=== PATIENT | female | born 1940 | race Caucasian/White ===

== ENCOUNTER → 2017-09-20 08:49 | Outpatient (CLI) | payer MEDICARE, OTHER, SELFPAY ==
[2017-09-20 12:41] LABS: Absolute Lymphocyte Count 1.48 X10^3/ul (0.83-4.51); Absolute Neutrophil Count 1.4 X10^3/uL (2.0-7.7); Basophil# 0.05 X10^3/uL; Basophil% 1.4 % (0-1); Eosinophils% 2.8 % (0-5); Hematocrit 41.7 % (37-47); Hemoglobin 13.7 g/dl (12.0-15.0); Lymphocyte # 1.48 X10^3/ul (4.0); Lymphocyte % 41.9 % (19-41); Mean Corp Hgb Conc 32.9 g/gl (32-36); Mean Corpuscular Hgb 29.5 pg (27.0-32.0); Mean Corpuscular Volume 89.7 fL (81-99); Mean Platelet Vol. 10.4 fl (6.2-12.0); Monocyte# 0.55 X10^3/uL; Monocyte% 15.6 % (0-10); Neutrophil # 1.35 X10^3/uL (2.7-7.7); Neutrophil % 38.3 % (47-70); Platelet Count 225 K/mm3 (150-450); RBC Distribution Width CV 13.2 % (11.6-14.6); RBC Distribution Width SD 42.7 fl (35.1-43.9); Red Blood Count 4.65 M/mm3 (4.2-5.4); White Blood Count 3.5 K/mm3 (4.4-11.0)
[2017-09-20 12:47] LABS: POSITIVE COUNT NO; POSITIVE DIFFERENTIAL NO; POSITIVE MORPHOLOGY NO
[2017-09-20 12:55] LABS: Anion Gap 5 (5-15); BUN 17 mg/dL (7-18); BUN/Creat Ratio 18.5 RATIO (10-20); Chloride 111 mmol/L (98-107); Cholesterol 226 mg/dL (200); Creatinine, Serum 0.92 mg/dL (0.55-1.02); EST Glomerular Filtration Rate 63 mL/min (>60); Est Glom Filt Rate - Afr Amer 76 mL/min (>60); Glucose 104 mg/dL (74-106); High Density Lipoprotein 98 mg/dL; Potassium 4.4 mmol/L (3.5-5.1); Sodium Level 142 mmol/L (136-145); Triglycerides 75 mg/dL; Very Low Density Lipoprotein 15 mg/dL (5-40)
[2017-09-20 13:00] LABS: Vitamin B12 658 pg/mL (211-911); Vitamin D,25 Hydroxy 60.4 ng/mL (29.95-100.01)
== END ==
PROVIDERS: Family Provider Family Medicine; PCP Family Medicine; Visit Provider Family Medicine
DX: E55.9 Vitamin D deficiency, unspecified (principal); E53.8 Deficiency of other specified B group vitamins; R53.83 Other fatigue; Z13.220 Encounter for screening for lipoid disorders
CPT/HCPCS: 36415; 80048; 80061; 82306; 82607; 85025

== ENCOUNTER → 2019-01-29 10:42 | Outpatient (CLI) | payer MEDICARE, OTHER, SELFPAY ==
[2019-01-29 12:36] LABS: Absolute Lymphocyte Count 1.61 X10^3/uL (0.83-4.51); Absolute Neutrophil Count 1.9 X10^3/uL (2.0-7.7); Basophil# 0.05 X10^3/uL; Basophil% 1.2 % (0-1); Eosinophil# 0.04 X10^3/uL; Eosinophils% 0.9 % (0-5); Hematocrit 40.6 % (37-47); Hemoglobin 13.3 g/dL (12.0-15.0); Lymphocyte # 1.61 X10^3/ul (4.0); Lymphocyte % 37.7 % (19-41); Mean Corp Hgb Conc 32.8 g/dL (32-36); Mean Corpuscular Hgb 29.6 pg (27.0-32.0); Mean Corpuscular Volume 90.4 fL (81-99); Mean Platelet Vol. 10.6 fl (6.2-12.0); Monocyte# 0.63 X10^3/uL; Monocyte% 14.8 % (0-10); NRBC Flagged by Analyzer 0 % (0-5); Neutrophil # 1.94 X10^3/uL (2.7-7.7); Neutrophil % 45.4 % (47-70); Platelet Count 228 K/mm3 (150-450); RBC Distribution Width CV 12.7 % (11.6-14.6); RBC Distribution Width SD 42.1 fl (35.1-43.9); Red Blood Count 4.49 M/mm3 (4.2-5.4); White Blood Count 4.3 K/mm3 (4.4-11.0)
[2019-01-29 12:58] LABS: Vitamin B12 940 pg/mL (211-911); Vitamin D,25 Hydroxy 58.2 ng/mL (29.95-100.01)
== END ==
PROVIDERS: Family Provider Family Medicine; PCP Family Medicine; Visit Provider Family Medicine
DX: E55.9 Vitamin D deficiency, unspecified (principal); E53.8 Deficiency of other specified B group vitamins
CPT/HCPCS: 36415; 82306; 82607; 85025

== ENCOUNTER → 2020-06-01 11:40 | Outpatient (CLI) | payer MEDICARE, OTHER, SELFPAY ==
[2020-06-01 15:19] LABS: Absolute Lymphocyte Count 1.51 X10^3/uL (0.83-4.51); Absolute Neutrophil Count 2.7 X10^3/uL (2.0-7.7); Basophil# 0.07 X10^3/uL; Basophil% 1.4 % (0-1); Eosinophil# 0.07 X10^3/uL; Eosinophils% 1.4 % (0-5); Hematocrit 41.4 % (37-47); Lymphocyte # 1.51 X10^3/ul (4.0); Lymphocyte % 29.8 % (19-41); Mean Corp Hgb Conc 33.8 g/dL (32-36); Mean Corpuscular Volume 91.8 fL (81-99); Mean Platelet Vol. 10.9 fl (6.2-12.0); Monocyte% 13.8 % (0-10); NRBC Flagged by Analyzer 0 % (0-5); Neutrophil # 2.71 X10^3/uL (2.7-7.7); Neutrophil % 53.4 % (47-70); Platelet Count 240 K/mm3 (150-450); RBC Distribution Width CV 12.9 % (11.6-14.6); Red Blood Count 4.51 M/mm3 (4.2-5.4); White Blood Count 5.1 K/mm3 (4.4-11.0)
[2020-06-01 15:39] LABS: Vitamin B12 1148 pg/mL (211-911); Vitamin D,25 Hydroxy 62.1 ng/mL
[2020-06-01 15:47] LABS: ALB/GLOB Ratio 0.9 RATIO (0.9-2.4); AST(SGOT) 26 U/L (15-37); Alanine Aminotransfer ALT/SGPT 27 U/L (13-56); Albumin, Serum 3.4 g/dL (3.2-5.0); Alkaline Phosphatase 72 U/L (45-117); Anion Gap 8 (5-15); BUN 16 mg/dL (7-18); BUN/Creat Ratio 16.2 RATIO (10-20); Calcium,Total 9.4 mg/dL (8.5-10.1); Chloride 106 mmol/L (98-107); Cholesterol 237 mg/dL (200); Creatinine, Serum 0.99 mg/dL (0.55-1.02); EST Glomerular Filtration Rate 58 mL/min (>60); Est Glom Filt Rate - Afr Amer 70 mL/min (>60); Globulin 3.8 g/dL (2.2-4.2); Glucose 85 mg/dL (74-106); High Density Lipoprotein 110 mg/dL; Potassium 4.1 mmol/L (3.5-5.1); Protein, Total 7.2 g/dL (6.4-8.2); Sodium Level 140 mmol/L (136-145); T4 Free Direct 1.12 ng/dL (0.76-1.46); Thyroid Stim Hormone (TSH) 0.84 uIU/mL (0.358-3.74); Triglycerides 75 mg/dL; Very Low Density Lipoprotein 15 mg/dL (5-40)
[2020-06-01 16:08] LABS: Hemoglobin A1c 5.4 % (3.8-5.6)
== END ==
PROVIDERS: PCP Family Medicine; Visit Provider Family Medicine
DX: R73.01 Impaired fasting glucose (principal); E55.9 Vitamin D deficiency, unspecified; D72.9 Disorder of white blood cells, unspecified; E53.8 Deficiency of other specified B group vitamins; E78.5 Hyperlipidemia, unspecified; R53.83 Other fatigue
CPT/HCPCS: 36415; 80053; 80061; 82306; 82607; 83036; 84439; 84443; 85025

== ENCOUNTER 2021-10-15 10:11 | Emergency (ER) | payer MEDICARE, OTHER, SELFPAY ==
[2021-10-15 10:12] VITALS: BP 166/67; PULSE 70; RESP 18; TEMP 36.1; O2SAT 99; BMI 24.7
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
[2021-10-15 11:18] VITALS: PULSE 74; RESP 17; O2SAT 98
== END 2021-10-15 11:19 | disposition home or self-care (01) ==
PROVIDERS: Emergency Provider Emergency Medicine; PCP Family Medicine; Visit Provider Emergency Medicine
DX: S80.852A Superficial foreign body, left lower leg, initial encounter (principal); X58.XXXA Exposure to other specified factors, initial encounter
CPT/HCPCS: 73590; 99282

== ENCOUNTER → 2022-02-03 | Outpatient (CLI) | payer MEDICARE, OTHER, SELFPAY ==
[2022-02-03 12:16] LABS: Basophil# 0.06 X10^3/uL; Basophil% 1.2 % (0-1); Eosinophil# 0.09 X10^3/uL; Eosinophils% 1.9 % (0-5); Hematocrit 42.9 % (37-47); Lymphocyte % 41.4 % (19-41); Mean Corp Hgb Conc 32.6 g/dL (32-36); Mean Corpuscular Hgb 29.7 pg (27.0-32.0); Mean Corpuscular Volume 91.1 fL (81-99); Mean Platelet Vol. 10.7 fl (6.2-12.0); Monocyte% 14.5 % (0-10); NRBC Flagged by Analyzer 0 % (0-5); Neutrophil # 1.97 X10^3/uL (2.7-7.7); Neutrophil % 40.8 % (47-70); Platelet Count 239 K/mm3 (150-450); RBC Distribution Width CV 12.7 % (11.6-14.6); RBC Distribution Width SD 42.3 fl (35.1-43.9); Red Blood Count 4.71 M/mm3 (4.2-5.4); White Blood Count 4.8 K/mm3 (4.4-11.0)
[2022-02-03 12:40] LABS: Vitamin B12 945 pg/mL (211-911); Vitamin D,25 Hydroxy 50.6 ng/mL
[2022-02-03 13:34] LABS: Anion Gap 6 (5-15); BUN 17 mg/dL (7-18); BUN/Creat Ratio 17.7 RATIO (10-20); Calcium,Total 9.5 mg/dL (8.5-10.1); Chloride 110 mmol/L (98-107); Cholesterol 262 mg/dL (200); Creatinine, Serum 0.96 mg/dL (0.55-1.02); EST Glomerular Filtration Rate 59 mL/min (>60); Est Glom Filt Rate - Afr Amer 72 mL/min (>60); Glucose 96 mg/dL (74-106); High Density Lipoprotein 97 mg/dL; Potassium 4.6 mmol/L (3.5-5.1); Sodium Level 142 mmol/L (136-145); Triglycerides 122 mg/dL; Very Low Density Lipoprotein 24 mg/dL (5-40)
[2022-02-03 14:02] LABS: Hemoglobin A1c 5.5 % (3.8-5.6)
== END | disposition home or self-care (01) ==
LOC: BFHLAB 09:32
PROVIDERS: PCP Family Medicine; Visit Provider Family Medicine
DX: E53.8 Deficiency of other specified B group vitamins (principal); E55.9 Vitamin D deficiency, unspecified; R73.01 Impaired fasting glucose; E78.5 Hyperlipidemia, unspecified
CPT/HCPCS: 36415; 80048; 80061; 82306; 82607; 83036; 85025

== ENCOUNTER → 2022-06-07 | Outpatient (CLI) | payer MEDICARE, OTHER, SELFPAY | END | disposition home or self-care (01) | LOC: LABSPEC 13:52 | PROVIDERS: PCP Family Medicine; Visit Provider Family Medicine | DX: Z20.822 Contact with and (suspected) exposure to COVID-19 (principal) | CPT/HCPCS: 87635; U0003; U0005 ==

== ENCOUNTER → 2022-06-21 | Outpatient (CLI) | payer MEDICARE, OTHER, SELFPAY ==
--- NOTE | 2022-06-21 14:50 | RAD_ITS ---
INDICATION: COUGH EXAMINATION/TECHNIQUE: X-RAY - XR Chest 2 Views COMPARISON: 11/17/2014. FINDINGS: The lungs are clear. Tortuous and calcified thoracic aorta. The heart is not enlarged. No pleural effusion or pneumothorax. Degenerative changes of the thoracic spine and shoulders. RAD/Chest PA and Lateral IMPRESSION: No acute radiographic abnormalities. COPD. Electronically Signed: Sadi Collins MD at 18:17 EST ,
== END | disposition home or self-care (01) ==
LOC: RAD 14:38
PROVIDERS: PCP Family Medicine; Referring Provider Family Medicine; Visit Provider Family Medicine
DX: R05.9 Cough, unspecified (principal)
CPT/HCPCS: 71046

== ENCOUNTER 2022-11-25 11:25 | Emergency (ER) | payer MEDICARE, OTHER, SELFPAY ==
[2022-11-25] VITALS (10 sets, daily range): BP systolic 116–146; BP diastolic 63–130; PULSE 65–81; RESP 13–29; TEMP 36.6; O2SAT 93–98; BMI 25.4; BMI 25.6
--- NOTE | 2022-11-25 11:33 | ED.RN ---
SPOKE WITH DR. PRITCHARD REGARDING PT'S SX.
--- NOTE | 2022-11-25 11:55 | EX.ED.DYSGE1 ---
HPI <CARYN Miller - Last Filed: 11/25/22 18:07> History of Present Illness Chief Complaint: Neuro S/Sx Narrative Narrative: Patient presenting today due to weakness in her legs, headache, fatigue, and a rash to her left upper arm that she has had since Monday. She reports that she went to the chiropractor Monday morning and was adjusted, including neck adjustment and later that day began to feel weak in her legs and had a difficulty standing as well as a headache and fatigue. On she had mild generalized abdominal pain, 3 episodes of vomiting, and nausea. She reports that she still has mild epigastric pain. She continued to have difficulty ambulating and has been using a walker with assistance from her when she normally does not use a walker. reports that on Monday they noticed an erythemic jose that looked like a bug bite to the medial aspect of her left upper arm. Today, the area has worsened and has become more red and they are concerned that she could have been bit by a tick because they do spend a lot of time outside. She has been chilled and denies any chest pain, shortness of breath, and urinary symptoms. [facility] <CARYN Miller - Last Filed: 11/25/22 18:07> [facility] Medical History Long QT interval Home Medications prednisone 20 mg tablet 60 mg (3 x 20 mg) PO DAILY ##24 11/17/14 [Rx Last Taken Unknown] cephalexin 500 mg capsule 500 mg PO Q6 #20 CAPSULES 10/15/21 [Rx Last Taken Unknown] doxycycline hyclate 100 mg capsule 100 mg PO BID 21 days #42 caps 11/25/22 [Rx Last Taken Unknown] omeprazole 20 mg capsule,delayed release 20 mg PO DAILY 11/25/22 [History Last Taken Unknown] Allergy/AdvReac Type Severity Reaction Status Date / Time Iodinated Contrast Media Allergy Hives Verified 11/25/22 11:26 iodine Allergy Unknown Verified 11/25/22 11:26 Surgical History History of hip surgery History of tonsillectomy Social History Smoking Status: Never smoker substance use type: does not use ROS <CARYN Miller - Last Filed: 11/25/22 18:07> ROS ED Constitutional Constitutional ED: Reports chills; Denies fever(s) Eyes Eyes: Denies change in vision Cardiovascular Cardiovascular: Denies chest pain or palpitations Respiratory/Chest Respiratory/Chest: Denies cough or dyspnea Gastrointestinal Gastrointestinal: Reports abdominal pain, nausea and vomiting; Denies constipation or diarrhea Genitourinary Genitourinary ED: Denies dysuria, hematuria or urinary urgency Musculoskeletal Musculoskeletal: Denies arthralgias or myalgias Integumentary Reports rash; Denies abscess Neurologic Neurologic: Reports headache(s) and weakness; Denies confusion, dizziness or paresthesias EXAM <CARYN Miller - Last Filed: 11/25/22 18:07> Physical Exam Const Vital Signs: 11/25/22 11:27 11/25/22 11:39 11/25/22 11:41 Temperature 98 F Temperature Source Temporal Pulse Rate 79 80 Respiratory Rate 14 17 Respiratory Effort Normal Non-Labored Blood Pressure 132/78 H 128/81 H Blood Pressure Mean 96 96 Pulse Ox 94 98 Oxygen Delivery Method Room Air Room Air 11/25/22 11:42 11/25/22 12:27 11/25/22 13:08 Temperature Temperature Source Pulse Rate 81 76 80 Respiratory Rate 18 13 25 H Respiratory Effort Blood Pressure 128/81 H 146/130 H 138/76 H Blood Pressure Mean 96 135 96 Pulse Ox 94 96 95 Oxygen Delivery Method Room Air Room Air Room Air 11/25/22 13:51 11/25/22 14:30 11/25/22 14:47 Temperature Temperature Source Pulse Rate 72 70 66 Respiratory Rate 27 H 25 H 25 H Respiratory Effort Blood Pressure 125/68 H 121/69 H 116/65 Blood Pressure Mean 87 86 82 Pulse Ox 93 96 94 Oxygen Delivery Method Room Air Room Air Room Air 11/25/22 15:03 11/25/22 15:52 Temperature Temperature Source Pulse Rate 68 65 Respiratory Rate 29 H 20 H Respiratory Effort Blood Pressure 118/63 130/79 H Blood Pressure Mean 81 Pulse Ox 93 94 Oxygen Delivery Method Room Air Positive well nourished, well developed and no apparent distress General Appearance ED: well developed HEENT Reports normocephalic, head/scalp atraumatic and TM's clear Tympanic Membrane ED: Yes TM's clear bilateral Mouth ED: Yes moist mucous membranes normal Eyes PERRL and EOMs intact bilaterally Neck full ROM and supple Chest Wall inspection of chest normal Resp normal respiratory effort and clear to auscultation bilaterally Cardio regular rate and regular rhythm GI soft to palpation, non-tender, non-distended and no masses Back/Spine normal ROM and normal to inspection Extremity normal to inspection and full ROM Neuro oriented x3, CN's II-XII intact bilaterally, moves all extremities, no focal motor deficits and no sensory deficits noted Sensorium / Orientation: awake and alert Coordination / Balance: [id number] test normal and [id number] test normal Speech: speech normal Motor Exam: strength 5/5 throughout and muscle tone normal throughout Psych mental status grossly normal and thought process normal Skin no wounds Skin Narrative: Erythemic and warm area to the left upper arm, this does slightly look like a bull's-eye as there is an area in the center that is darker red, but also may look like cellulitis. <Dr. Sung Minaya, DO - Last Filed: 11/25/22 16:33> Physical Exam Const Vital Signs: 11/25/22 11:27 11/25/22 11:39 11/25/22 11:41 Temperature 98 F Temperature Source Temporal Pulse Rate 79 80 Respiratory Rate 14 17 Respiratory Effort Normal Non-Labored Blood Pressure 132/78 H 128/81 H Blood Pressure Mean 96 96 Pulse Ox 94 98 Oxygen Delivery Method Room Air Room Air 11/25/22 11:42 11/25/22 12:27 11/25/22 13:08 Temperature Temperature Source Pulse Rate 81 76 80 Respiratory Rate 18 13 25 H Respiratory Effort Blood Pressure 128/81 H 146/130 H 138/76 H Blood Pressure Mean 96 135 96 Pulse Ox 94 96 95 Oxygen Delivery Method Room Air Room Air Room Air 11/25/22 13:51 11/25/22 14:30 11/25/22 14:47 Temperature Temperature Source Pulse Rate 72 70 66 Respiratory Rate 27 H 25 H 25 H Respiratory Effort Blood Pressure 125/68 H 121/69 H 116/65 Blood Pressure Mean 87 86 82 Pulse Ox 93 96 94 Oxygen Delivery Method Room Air Room Air Room Air 11/25/22 15:03 11/25/22 15:52 Temperature Temperature Source Pulse Rate 68 65 Respiratory Rate 29 H 20 H Respiratory Effort Blood Pressure 118/63 130/79 H Blood Pressure Mean 81 Pulse Ox 93 94 Oxygen Delivery Method Room Air [facility] <CARYN Miller - Last Filed: 11/25/22 18:07> [facility] Narrative Medical decision making narrative: Patient presenting today due to concerns that she could have been bit by a tick as she has a rash that started as a small red bump on her left arm that has now spread and become larger that she first noticed on Monday. She reports that she spends a lot of time outdoors. She also reports that on Monday morning and she had a back and neck adjustment done by her chiropractor and by that evening she was having weakness in her legs and had a difficult time standing. She does not have any back or neck pain. She reports that she developed a headache and fatigue was on Monday that has not gotten any better. She developed a red jose to her left upper arm on Monday that has since spread and is concerned for Lyme disease. On examination patient does have intact sensation and strength in her legs. NIH is 0. This does not seem like Guillain-Hickman?. Patient does not have any paralysis on exam. There is no focal neurological deficit. She does have a erythemic rash to her left arm that could either be erythema migrans or cellulitis, she will be treated for cellulitis here. She has also been given IV fluids, Reglan, Benadryl, and Tylenol. Head CT obtained as well as a head and neck CTA to rule out carotid dissection from her recent adjustment as well as other intracranial abnormality and are negative for any acute findings. Labs obtained to rule out the doses anemia, electrolyte abnormality, UTI, and Lyme testing is also been obtained. Labs all are patient's unremarkable, UA does have bacteria and positive leukocytes, however she is not having any urinary symptoms. We will send this for culture. I did speak to the hospitalist about patient given her weakness, however, patient was ambulated and did well, she feels like her weakness has improved and feels like she can go home. She also reports that her headache has improved. Hospitalist agrees that patient can go home to be followed up outpatient. She will be discharged home in stable condition and is comfortable with plan. She will be treated for potential Lyme disease with doxycycline. She has been given return instructions. Lab Data Attestation: I reviewed the patient's lab results. Labs: Laboratory Results - last 24 hr 11/25/22 11/25/22 11/25/22 11:41 11:55 14:28 WBC 6.8 RBC 4.77 Hgb 14.2 Hct 42.9 MCV 89.9 MCH 29.8 MCHC 33.1 RDW Std Deviation 41.9 RDW Coeff of Meg 12.6 Plt Count 166 MPV 10.4 Immature Gran % (Auto) 0.600 Neut % (Auto) 80.7 H Lymph % (Auto) 9.1 L [place] % (Auto) 8.7 Eos % (Auto) 0.0 Baso % (Auto) 0.9 Absolute Neuts (auto) 5.5 Absolute Lymphs (auto) 0.62 L Nucleated RBC % 0 PT 14.2 INR 1.1 APTT 32.5 Sodium 132 L Potassium 4.1 Chloride 101 Carbon Dioxide 24.0 Anion Gap 7 BUN 10 Creatinine 0.95 Estim Creat Clear Calc 35.05 Est GFR (MDRD) Af Amer 73 Est GFR (MDRD) Non-Af 60 BUN/Creatinine Ratio 10.5 Glucose 114 H Calcium 8.8 Total Bilirubin 0.60 AST 47 H ALT 48 Alkaline Phosphatase 75 Troponin I High Sens 17 Total Protein 7.1 Albumin 3.1 L Globulin 4.0 Albumin/Globulin Ratio 0.8 L Urine Color Yellow Urine Clarity Sl. Cloudy Urine pH 6.0 Ur Specific [place] 1.015 Urine Protein 100 H Urine Glucose (UA) Normal Urine Ketones 50 H Urine Occult Blood 10 H Urine Nitrite Negative Urine Bilirubin Negative Urine Urobilinogen 1 H Ur Leukocyte Esterase 100 H Urine RBC 0-5 SEEN Urine WBC 10-25 SEEN Ur Squamous Epith Cells 0-5 SEEN Urine Bacteria 1+ Urine Mucus 1+ POC Glucose 130 H Radiography Diagnostic Testing: Clinical Impression(s) from Imaging Studies Head/Neck CTA 11/25/22 11:59 IMPRESSION: Minimal plaque calcification at the origin of the right internal carotid artery. Heterogeneous enlargement of both lobes of thyroid gland with substernal extension. N.B. : The above Results were Read Back by Tu Cao MD to Sung Minaya DO, and understanding confirmed on 11/25/2022 14:42:30 (ET). Electronically Signed: Tu Cao MD at 14:43 EDT , ADDENDUM: 11/25/22 1450 IMPRESSION: Minimal plaque calcification at the origin of the right internal carotid artery. Heterogeneous enlargement of both lobes of thyroid gland with substernal extension. N.B. : The above Results were Read Back by Tu Cao MD to Sung Minaya DO, and understanding confirmed on 11/25/2022 14:42:30 (ET). Electronically Signed: Tu Cao MD at 14:43 EDT , Brain CT 11/25/22 12:02 IMPRESSION: Chronic involutional changes of the brain. Electronically Signed: Tu Cao MD at 12:17 EDT , Chest X-Ray 11/25/22 12:44 IMPRESSION: No acute mouth is seen. Stable examination. Electronically Signed: Tu Cao MD at 13:14 EDT , EKG Initial EKG: Comments: 78 bpm, sinus rhythm with PACs, no ST elevation, reviewed and interpreted by attending ED physician <Dr. Sung Minaya DO - Last Filed: 11/25/22 16:33> [facility] Lab Data Labs: Laboratory Results - last 24 hr 11/25/22 11/25/22 11/25/22 11:41 11:55 14:28 WBC 6.8 RBC 4.77 Hgb 14.2 Hct 42.9 MCV 89.9 MCH 29.8 MCHC 33.1 RDW Std Deviation 41.9 RDW Coeff of Meg 12.6 Plt Count 166 MPV 10.4 Immature Gran % (Auto) 0.600 Neut % (Auto) 80.7 H Lymph % (Auto) 9.1 L [place] % (Auto) 8.7 Eos % (Auto) 0.0 Baso % (Auto) 0.9 Absolute Neuts (auto) 5.5 Absolute Lymphs (auto) 0.62 L Nucleated RBC % 0 PT 14.2 INR 1.1 APTT 32.5 Sodium 132 L Potassium 4.1 Chloride 101 Carbon Dioxide 24.0 Anion Gap 7 BUN 10 Creatinine 0.95 Estim Creat Clear Calc 35.05 Est GFR (MDRD) Af Amer 73 Est GFR (MDRD) Non-Af 60 BUN/Creatinine Ratio 10.5 Glucose 114 H Calcium 8.8 Total Bilirubin 0.60 AST 47 H ALT 48 Alkaline Phosphatase 75 Troponin I High Sens 17 Total Protein 7.1 Albumin 3.1 L Globulin 4.0 Albumin/Globulin Ratio 0.8 L Urine Color Yellow Urine Clarity Sl. Cloudy Urine pH 6.0 Ur Specific [place] 1.015 Urine Protein 100 H Urine Glucose (UA) Normal Urine Ketones 50 H Urine Occult Blood 10 H Urine Nitrite Negative Urine Bilirubin Negative Urine Urobilinogen 1 H Ur Leukocyte Esterase 100 H Urine RBC 0-5 SEEN Urine WBC 10-25 SEEN Ur Squamous Epith Cells 0-5 SEEN Urine Bacteria 1+ Urine Mucus 1+ POC Glucose 130 H Radiography Diagnostic Testing: Clinical Impression(s) from Imaging Studies Head/Neck CTA 11/25/22 11:59 IMPRESSION: Minimal plaque calcification at the origin of the right internal carotid artery. Heterogeneous enlargement of both lobes of thyroid gland with substernal extension. N.B. : The above Results were Read Back by Tu Cao MD to Sung Minaya DO, and understanding confirmed on 11/25/2022 14:42:30 (ET). Electronically Signed: Tu Cao MD at 14:43 EDT , ADDENDUM: 11/25/22 7850 IMPRESSION: Minimal plaque calcification at the origin of the right internal carotid artery. Heterogeneous enlargement of both lobes of thyroid gland with substernal extension. N.B. : The above Results were Read Back by Tu Cao MD to Sung Minaya DO, and understanding confirmed on 11/25/2022 14:42:30 (ET). Electronically Signed: Tu Cao MD at 14:43 EDT , Brain CT 11/25/22 12:02 IMPRESSION: Chronic involutional changes of the brain. Electronically Signed: Tu Cao MD at 12:17 EDT , Chest X-Ray 11/25/22 12:44 IMPRESSION: No acute mouth is seen. Stable examination. Electronically Signed: Tu Cao MD at 13:14 EDT , Treatment and Re-Evaluation :: ED attending note: I evaluated the patient in conjunction with the GHAZALA. I agree with his/her statements and above findings. I have personally performed a face to face assessment of the patient and have reviewed the GHAZALA Note. I performed a substantive portion of the visit including all aspects of the following. I personally saw the patient performed chart review, physical exam, reviewed labs, imaging (if obtained), and formulated a treatment and management plan. Brief history: 82-year-old female here with diffuse weakness. Patient denies any saddle anesthesia, urinary retension, bowel or bladder incontinence, lower extremity weakness, fever or IV drug use, no recent spinal manipulation or surgery, no recent urinary catheterization. Exam: Nursing triage notes reviewed, Vital signs reviewed Constitutional: please see mdm HENT: MMM Eyes: Pupils equal round and reactive to light, Extraocular muscles intact Neck: No stridor, no JVD, full neck ROM Lungs: Clear to auscultation, No wheezing or rales. No increased work of breathing, no conversational dyspnea, no accessory muscle use, no nasal flaring. No respiratory distress noted Heart: Regular rate and rhythm, No murmurs, No rubs and No gallops, 2+ distal pulses (radial, femoral, posterior tibial) in all extremities Abdomen: Soft, there is no tenderness, rigidity, rebound or guarding, no obvious peritoneal signs, no palpable pulsatile abdominal masses, no auscultated abdominal bruit : No CVAT Extremities: No edema Neuro: Alert and oriented x3, neuro exam at baseline, cranial nerves II through XII are intact. No pain with extraocular muscle movement. There is negative test of skew. Normal speech. 5 of 5 strength in upper and lower extremities in flexion extension. Intact sensation to light touch in upper and lower extremity dermatomes. No truncal or extremity ataxia. No dysdiadochokinesia. Normal gait. 2+ reflexes. No meningeal signs. Negative Babinski. NIH of 0. Intact sensation L1-S1 dermatomal distributions. Intact 5/5 strength in hip flexion (T12-L3). Knee extension (L2-L4). Ankle dorsiflexion (L4-L5). Ankle plantar flexion (S1). Great toe extension (L5). 2+ patellar and Achilles DTRs. Skin: N erythema noted to the medial surface of the left upper arm MDM/plan: Chief Complaint: Weakness History obtained from others: Patient's MDM narrative: Patient was hemodynamically stable, afebrile, nontoxic-appearing. There are no focal neurologic deficits. I considered the following differential diagnosis: ICH, carotid dissection, anemia, electrolyte abnormality, infectious etiology, metabolic We will obtain a broad lab and imaging work-up including a Noncon CT scan of the brain as well as a CT of the head and neck. We will also obtain labs including troponin, Lyme titer to further elucidate any infectious or myocardial etiology. Given the patient's advanced age and reported she was not ambulatory at home. Given lack of ambulation we will offer admission. The patient presented diffuse weakness, leg weakness. There was no history of recent fall or trauma. There was no evidence to support genitourinary etiology. There is also no evidence to suggest vascular pathology such as AAA dissection. No fevers or other evidence to suspect infectious processes, abscess, osteomyelitis etc. The patient?s neurological exam is normal with normal motor and sensory. There is no saddle paresthesias reported and no bowel or bladder incontinence or retention. Clinical suspicion, plan of care and management was discussed with the patient. I completed a structured, evidence-based clinical evaluation to screen for acute non-traumatic spinal emergencies. The patient has a normal detailed neurologic exam and red flag historical factors were negative. The evidence indicates that the patient is very low risk for an acute spinal emergency and this is consistent with my clinical intuition. The risk of further workup is higher than the likelihood of the patient having a spinal epidural abscess or other dangerous emergency spinal condition. It is, therefore, in the patient?s best interest not to do additional emergent testing at this time. We will give empiric doxycycline with concern for tick bite and targetoid appearing lesion in the left upper extremity. Shared decision making: I will have a discussion with the patient and or visitors regarding risk/benefits of further testing or admission. They will be made aware of of the risk/benefits inherent in this decision they will be given the opportunity to voice understanding. Consults: Internal medicine Discharge Plan Triage Chief Complaint: Neuro S/Sx ED Midlevel Provider: Brittney Carl ED Provider: Sung Minaya Dx/Rx/DC Orders Clinical Impression: General weakness, Rash, Headache Instructions: ED Lyme Disease, ED Weakness (Uncertain Cause) Prescriptions: New doxycycline hyclate 100 mg capsule 100 mg PO BID 21 Days Qty: 42 0RF No Action prednisone 20 MG tablet 60 mg PO DAILY Qty: 24 0RF Rx Instructions: 3 tabs po day 1-4, then 2 tabs po day 5-8, then 1 tab day 9-12 cephalexin [cephalexin] 500 mg capsule 500 mg PO Q6 Qty: 20 0RF omeprazole 20 mg capsule,delayed release(DR/EC) 20 mg PO DAILY Patient Comments: TAKE 1 CAPSULE BY MOUTH EVERY DAY 30-45 minutes before a meal/snack Primary Care Provider: Re Harley Referrals: Re Harley MD [Primary Care Provider] - 3-5 Days Activity Restrictions/Additional Instructions: Please follow-up with your PCP. If the Lyme titer comes back negative discontinue the doxycycline after 10 days. Disposition Disposition: Home, Self Care Discharge Date/Time: 11/25/22 16:12
[2022-11-25 11:59] LABS: Bedside Glucose 130 mg/dL (74-106)
--- NOTE | 2022-11-25 11:59 | CT_ITS ---
STUDY: CTA HEAD AND NECK WITH CONTRAST REASON FOR EXAM: Female, 82 years old. Neck pain, recent adjustment RADIATION DOSAGE (If Supplied By Facility): CTDIvol = ( 16.09 ) mGy, DLP = ( 535.46 ) mGycm TECHNIQUE: CT angiography was performed with a multi-detector CT scanner. Data acquisition was obtained from the skull base through the vertex following intravenous administration of IV 100mL [id number]-370. MIP images were reconstructed from the axial data set. Post-processing of the angiographic images was performed, with multiplanar reformation and 3D reconstruction. Individualized dose optimization techniques were used for this CT. COMPARISON: No relevant priors. FINDINGS: Normal bilateral petrous carotid arteries. Normal right cavernous carotid artery with a normal supraclinoid bifurcation. Normal left cavernous carotid artery with a normal supraclinoid bifurcation. Normal right A1 segments of the anterior cerebral artery. Normal left A1 segments of the anterior cerebral artery. Normal intact anterior communicating artery (ACOM). Normal bilateral A2 segments of the anterior cerebral arteries. Normal right M1 and M2 segments of the middle cerebral arteries, with a normal M1 bifurcation. Normal left M1 and M2 segments of the middle cerebral arteries, with a normal M1 bifurcation. There is a persistent origin of the right posterior cerebral artery with absence of the posterior communicating artery (PCOM). Normal left posterior communicating artery (PCOM). Normal bilateral vertebral arteries. Normal basilar artery with a normal basilar bifurcation. The visualized bilateral superior cerebellar (SCA) arteries are normal. Normal bilateral P1, P2 and visualized P3 segments of the posterior cerebral arteries. There is no demonstrated aneurysm of the [place] of [place]. Heterogeneous enlargement of both lobes of the thyroid gland with evidence of substernal extension. AORTIC ARCH: There is atherosclerotic calcific plaque formation of the aortic arch and great vessels arising from the aortic arch, without a hemodynamically significant stenosis. There is a normal origin of the brachiocephalic, left common carotid, and left subclavian arteries. RIGHT CAROTID ARTERIES: Normal right common carotid artery (CCA). Normal right common carotid bulb. There is mild atherosclerotic plaque formation of the origin of the right internal carotid artery with less than 50% cross sectional diameter stenosis. Normal visualized cervical portion of the right internal carotid artery. Normal origin of the right external carotid artery (ECA). LEFT CAROTID ARTERIES: Normal left common carotid artery (CCA). Normal left common carotid bulb. Normal origin of the left internal carotid (ICA) artery without a hemodynamically significant stenosis. Normal visualized cervical portion of the left internal carotid artery. Normal origin of the left external carotid artery (ECA). VERTEBRAL ARTERIES: Normal bilateral vertebral arteries. CT/STROKE CTA Head AND Neck W/Con IMPRESSION: Minimal plaque calcification at the origin of the right internal carotid artery. Heterogeneous enlargement of both lobes of thyroid gland with substernal extension. N.B. : The above Results were Read Back by Tu Cao MD to Sung Minaya DO, and understanding confirmed on 11/25/2022 14:42:30 (ET). Electronically Signed: Tu Cao MD at 14:43 EDT ,
--- NOTE | 2022-11-25 12:02 | CT_ITS ---
STUDY: CT BRAIN WITHOUT CONTRAST REASON FOR EXAM: Female, 82 years old. Headaches, leg weakness RADIATION DOSAGE (If Supplied By Facility): CTDIvol = ( 44.99 ) mGy, DLP = ( 762.36 ) mGycm TECHNIQUE: Transaxial CT imaging of the brain was performed without administration of intravenous contrast material. Individualized dose optimization techniques were used for this CT. COMPARISON: No relevant priors. FINDINGS: Normal soft tissue structures. Normal calvarium. There is mild cerebral atrophy with widening of the extra-axial spaces and ventricular dilatation. There are areas of decreased attenuation within the white matter tracts of the supratentorial brain, consistent with microvascular disease changes. Normal basal ganglia and thalami. Normal brainstem. Normal cerebellum. There is no intracranial hemorrhage. There are no findings of an acute ischemic infarction. Atherosclerotic calcification of the cavernous portions of the internal carotid arteries bilaterally. Normal visualized paranasal sinuses. CT/Brain/Head without Contrast IMPRESSION: Chronic involutional changes of the brain. Electronically Signed: Tu Cao MD at 12:17 EDT ,
[2022-11-25 12:08] LABS: Absolute Lymphocyte Count 0.62 X10^3/uL (0.83-4.51); Absolute Neutrophil Count 5.5 X10^3/uL (2.0-7.7); Basophil# 0.06 X10^3/uL; Basophil% 0.9 % (0-1); Hematocrit 42.9 % (37-47); Hemoglobin 14.2 g/dL (12.0-15.0); Lymphocyte # 0.62 X10^3/ul (0.83-4.51); Lymphocyte % 9.1 % (19-41); Mean Corp Hgb Conc 33.1 g/dL (32-36); Mean Corpuscular Hgb 29.8 pg (27.0-32.0); Mean Corpuscular Volume 89.9 fL (81-99); Mean Platelet Vol. 10.4 fl (6.2-12.0); Monocyte# 0.59 X10^3/uL; Monocyte% 8.7 % (0-10); NRBC Flagged by Analyzer 0 % (0-5); Neutrophil # 5.47 X10^3/uL (2.7-7.7); Neutrophil % 80.7 % (47-70); Platelet Count 166 K/mm3 (150-450); RBC Distribution Width CV 12.6 % (11.6-14.6); RBC Distribution Width SD 41.9 fl (35.1-43.9); Red Blood Count 4.77 M/mm3 (4.2-5.4); White Blood Count 6.8 K/mm3 (4.4-11.0)
[2022-11-25 12:24] LABS: ALB/GLOB Ratio 0.8 RATIO (0.9-2.4); AST(SGOT) 47 U/L (15-37); Alanine Aminotransfer ALT/SGPT 48 U/L (13-56); Albumin, Serum 3.1 g/dL (3.2-5.0); Alkaline Phosphatase 75 U/L (45-117); Anion Gap 7 (5-15); BUN 10 mg/dL (7-18); BUN/Creat Ratio 10.5 RATIO (10-20); Calcium,Total 8.8 mg/dL (8.5-10.1); Chloride 101 mmol/L (98-107); Creatinine, Serum 0.95 mg/dL (0.55-1.02); EST Glomerular Filtration Rate 60 mL/min (>60); Est Glom Filt Rate - Afr Amer 73 mL/min (>60); Estimated Creatinine Clearance 35.05 ml/min; Glucose 114 mg/dL (74-106); Potassium 4.1 mmol/L (3.5-5.1); Protein, Total 7.1 g/dL (6.4-8.2); Sodium Level 132 mmol/L (136-145)
--- NOTE | 2022-11-25 12:25 | EKG12_ITS ---
Test Reason : weakness Blood Pressure : / mmHG Vent. Rate : 078 BPM Atrial Rate : 078 BPM P-R Int : 166 ms QRS Dur : 074 ms QT Int : 396 ms P-R-T Axes : 066 -10 049 degrees QTc Int : 451 ms Sinus rhythm with Premature atrial complexes Nonspecific T wave abnormality Abnormal ECG Confirmed by GLORIA SHARMA, NEEMA ([id number]), proposal editor EBONY NICOLE ([id number]) on 11/26/2022 10:05:32 AM Referred By: Confirmed By:NEEMA CASTRO MD
[2022-11-25] MEDS: Acetaminophen 325 MG Tablet 650 MG PO (12:36)
[2022-11-25] MEDS: Doxycycline 100 MG CAPSULE PO (12:36)
[2022-11-25] MEDS: 0.9% Normal Saline 1,000 ML 999 ML IV (12:36)
[2022-11-25] MEDS: Metoclopramide 10 MG/2 ML Vial 5 MG IV (12:36)
--- NOTE | 2022-11-25 12:44 | RAD_ITS ---
STUDY: X-RAY CHEST REASON FOR EXAM: Female, 82 years old. Weakness. Headaches and unable to walk for 2 days. TECHNIQUE: Single AP portable view of the chest. COMPARISON: Comparison is made with prior study June 21, 2022. FINDINGS: EKG electrodes are seen. Hyperinflation. There is no demonstrated pleural abnormality. Normal size heart. Normal mediastinum and ravi. Normal visualized pulmonary arteries. There is atherosclerotic calcification of the aortic arch with tortuosity. There is a mild dextroscoliosis of the thoracic spine. Normal visualized ribs, clavicles, and shoulders. There is no demonstrated abnormality of the visualized soft tissue structures of the upper abdomen. RAD/Chest 1 View (Portable) IMPRESSION: No acute mouth is seen. Stable examination. Electronically Signed: Tu Cao MD at 13:14 EDT ,
[2022-11-25] MEDS: DiphenhydrAMINE 50 MG/ML Syringe IV (12:59)
--- NOTE | 2022-11-25 13:08 | ED.RN ---
THIS RN CALLED [facility] TO LET THEM KNOW PT WAS MEDICATED WITH BENADRYL AND SOLUMEDROL AT 1259.
[2022-11-25 13:12] LABS: International Normalized Ratio 1.1; Prothrombin Time (Protime)PT. 14.2 SECONDS (11.7-14.9)
[2022-11-25 13:13] LABS: Partial Thromboplast Time 32.5 Seconds (24.1-36.2)
[2022-11-25 13:16] LABS: Troponin-I HS 17 pg/mL (3.0-54.0)
--- NOTE | 2022-11-25 13:46 | CM.ED ---
Social Work SW introduced self and role to pt and spouse. Pt reports having HCPOA/Living will paperwork at home. SW asked patient to bring documents in when able. Gail New INSPECTOR PROCESS, MAINTENANCE CARPENTER
[2022-11-25 14:39] LABS: Color, Urine Yellow (Yellow); Glucose, Dipstick Normal (Normal); Ketone-Dipstick 50 mg/dl (Negative); Leukocyte Esterase-Dipstick 100 /ul (Negative); Nitrite-Dipstick Negative (Negative); Occult Blood-Urine 10 /ul (Negative); Protein-Dipstick 100 mg/dl (Negative); Specific Gravity, Urine 1.015 (1.002-1.030); Urine Bilirubin Dipstick Negative (Negative); Urine Clarity Sl. Cloudy (Clear); Urine Urobilinogen 1 mg/dl (Normal)
[2022-11-25 14:48] LABS: Bacteria 1+ /hpf (None Seen); Mucous, Urine 1+ /hpf (<or=2+); Red Blood Cells-Urine 0-5 SEEN /hpf (0-5); Squamous Epithelial Cells - UA 0-5 SEEN /hpf (5-10); White Blood Cells 10-25 SEEN /hpf (0-5)
[2022-11-30 01:06] LABS: Lyme IgG P18 Ab Absent (.); Lyme IgG P23 Ab Absent (.); Lyme IgG P28 Ab Absent (.); Lyme IgG P30 Ab Absent (.); Lyme IgG P39 Ab Absent (.); Lyme IgG P41 Ab Absent (.); Lyme IgG P45 Ab Absent (.); Lyme IgG P58 Ab Absent (.); Lyme IgG P66 Ab Absent (.); Lyme IgG P93 Ab Absent (.); Lyme IgG WB Interpretation Negative (.); Lyme IgM P23 Ab Absent (.); Lyme IgM P39 Ab Absent (.); Lyme IgM P41 Ab Absent (.); Lyme IgM WB Interpretation Negative (.)
== END 2022-11-25 16:12 | disposition home or self-care (01) ==
PROVIDERS: Physician Assistant; Emergency Provider Emergency Medicine; PCP Family Medicine; Visit Provider Emergency Medicine
DX: R53.1 Weakness (principal); R21 Rash and other nonspecific skin eruption; R51.9 Headache, unspecified
CPT/HCPCS: 70450; 70496; 70498; 71045; 80053; 81001; 82962; 84484; 85025; 85610; 85730; 86617; 93005; 96361; 96374; 96375; 99285; J7030; Q9967; A4216

== ENCOUNTER → 2023-03-20 | Outpatient (CLI) | payer MEDICARE, OTHER, SELFPAY ==
--- NOTE | 2023-03-20 10:24 | BI_ITS ---
MAMMOGRAPHY - BILATERAL SCREENING REASON FOR EXAM: Female, 82 years old. Routine annual screening examination. PERTINENT HISTORY: Sister with breast cancer. History of remote right breast biopsy. TECHNIQUE: Digital bilateral breast misha (3D mammographic acquisition) in the CC and MLO projections. 2-D mediolateral oblique (MLO) and craniocaudad (CC) views of both breasts were obtained. CAD: Full Field Digital Mammography with Computer Added Detection was performed. COMPARISON: Comparison is made with prior outside mammogram dated January 07, 2021. FINDINGS: Breast Composition: There are scattered areas of fibroglandular density. There are no dominant masses or suspicious calcifications. No other significant abnormalities are identified. There has been no significant change since the prior study. BI/SCRN MAMM (CAD)W/MISHA BILAT IMPRESSION: Stable bilateral screening mammogram. Yearly follow-up mammogram recommended. (A) ASSESSMENT CATEGORY: BIRADS Category 1: Negative. A letter regarding these results will be sent to the patient by the facility within 30 days. Approximately 10% of breast cancers are not detected by mammography. A normal mammogram should not delay biopsy of a clinically suspicious abnormality. [id number] Electronically Signed: Tu Cao MD at 9:23 EST ,
== END | disposition home or self-care (01) ==
LOC: OPBI 10:23
PROVIDERS: PCP Family Medicine; Referring Provider Nurse Practitioner Family; Visit Provider Nurse Practitioner Family
DX: Z12.31 Encounter for screening mammogram for malignant neoplasm of breast (principal)
CPT/HCPCS: 77063; 77067

== ENCOUNTER → 2023-03-21 | Outpatient (CLI) | payer MEDICARE, OTHER, SELFPAY ==
[2023-03-21 12:23] LABS: Absolute Lymphocyte Count 2.19 X10^3/uL (0.83-4.51); Basophil# 0.09 X10^3/uL; Basophil% 1.7 % (0-1); Eosinophil# 0.26 X10^3/uL; Eosinophils% 4.9 % (0-5); Hematocrit 42.7 % (37-47); Lymphocyte # 2.19 X10^3/ul (0.83-4.51); Lymphocyte % 41.6 % (19-41); Mean Corp Hgb Conc 32.8 g/dL (32-36); Mean Corpuscular Volume 91.4 fL (81-99); Mean Platelet Vol. 10.7 fl (6.2-12.0); Monocyte# 0.76 X10^3/uL; Monocyte% 14.4 % (0-10); NRBC Flagged by Analyzer 0 % (0-5); Neutrophil # 1.96 X10^3/uL (2.7-7.7); Neutrophil % 37.2 % (47-70); Platelet Count 248 K/mm3 (150-450); RBC Distribution Width CV 12.9 % (11.6-14.6); Red Blood Count 4.67 M/mm3 (4.2-5.4); White Blood Count 5.3 K/mm3 (4.4-11.0)
[2023-03-21 12:45] LABS: Vitamin B12 840 pg/mL (211-911); Vitamin D,25 Hydroxy 79.4 ng/mL
[2023-03-21 12:49] LABS: ALB/GLOB Ratio 0.9 RATIO (0.9-2.4); AST(SGOT) 24 U/L (15-37); Alanine Aminotransfer ALT/SGPT 29 U/L (13-56); Albumin, Serum 3.6 g/dL (3.2-5.0); Alkaline Phosphatase 73 U/L (45-117); Anion Gap 4 (5-15); BUN 22 mg/dL (7-18); BUN/Creat Ratio 21.2 RATIO (10-20); Calcium,Total 9.5 mg/dL (8.5-10.1); Chloride 108 mmol/L (98-107); Cholesterol 276 mg/dL (200); Creatinine, Serum 1.04 mg/dL (0.55-1.02); EST Glomerular Filtration Rate 54 mL/min (>60); Est Glom Filt Rate - Afr Amer 65 mL/min (>60); Globulin 3.8 g/dL (2.2-4.2); Glucose 97 mg/dL (74-106); High Density Lipoprotein 101 mg/dL; Potassium 4.6 mmol/L (3.5-5.1); Protein, Total 7.4 g/dL (6.4-8.2); Sodium Level 141 mmol/L (136-145); Triglycerides 97 mg/dL; Very Low Density Lipoprotein 19 mg/dL (5-40)
== END | disposition home or self-care (01) ==
PROVIDERS: PCP Nurse Practitioner Family; Visit Provider Nurse Practitioner Family
DX: E55.9 Vitamin D deficiency, unspecified (principal); E53.8 Deficiency of other specified B group vitamins; D72.9 Disorder of white blood cells, unspecified; E78.5 Hyperlipidemia, unspecified
CPT/HCPCS: 36415; 80053; 80061; 82306; 82607; 85025

== ENCOUNTER → 2023-05-02 | Outpatient (CLI) | payer MEDICARE, OTHER, SELFPAY ==
--- NOTE | 2023-05-02 15:35 | RAD_ITS ---
EXAM: XR LUMBOSACRAL SPINE, 4 OR 5 VIEWS CLINICAL INDICATION: BACK PAIN TECHNIQUE: Frontal, lateral and bilateral oblique views of the lumbar spine. COMPARISON: No relevant prior studies available. FINDINGS: VERTEBRAE: There is mild curvature of the lumbar spine. Preserved vertebral body height. No fracture. No spondylolisthesis. No significant facet arthropathy. DISC SPACES: There are degenerative changes with disc space narrowing from L3 through S1. GASTROINTESTINAL TRACT: Unremarkable as visualized. Included bowel gas pattern is non-obstructive. RAD/L/S Spine Min 4 Views IMPRESSION: Degenerative changes with disc space narrowing. There is mild curvature of the lumbar spine. There is no acute osseous abnormality. Electronically Signed: Haroon Weston MD at 0:01 EST ,
--- NOTE | 2023-05-02 15:35 | RAD_ITS ---
EXAM: XR BILATERAL HIPS WITH PELVIS WHEN PERFORMED, 2 VIEWS CLINICAL INDICATION: PAIN TECHNIQUE: Frontal view of the bilateral hips with pelvis when performed. COMPARISON: No relevant prior studies available. FINDINGS: BONES/JOINTS: Unremarkable. No displaced fracture. No destructive or sclerotic lesions. Note that overlapping bowel shadows may however obscure fine detail. Sacroiliac joint is unremarkable. No widening of the pubic symphysis. The articular structures are unremarkable. SOFT TISSUES: Unremarkable. No soft tissue swelling or gas. RAD/Hips B/L min 2 views w/ Pelvis IMPRESSION: No evidence of displaced pelvic or hip fracture. Electronically Signed: Haroon Weston MD at 23:26 EST ,
== END | disposition home or self-care (01) ==
PROVIDERS: PCP Family Medicine; Referring Provider Nurse Practitioner Family; Visit Provider Nurse Practitioner Family
DX: M25.551 Pain in right hip (principal); M25.552 Pain in left hip; M54.50 Low back pain, unspecified
CPT/HCPCS: 72110; 73521

== ENCOUNTER 2023-05-31 11:37 | Emergency (ER) | payer MEDICARE, OTHER, SELFPAY ==
[2023-05-31 11:38] VITALS: BP 112/92; PULSE 56; RESP 14; TEMP 36.3; O2SAT 98; BMI 26.5
--- NOTE | 2023-05-31 14:09 | VDLE_ITS ---
Reason For Study: Bilateral leg pain RIGHT LEFT GSV is normal. GSV is normal. CFV is compressible, spontaneous, phasic, CFV is compressible, spontaneous, phasic, competent and demonstrates normal competent, and demonstrates normal augmentation. augmentation. FV is compressible, spontaneous, phasic, FV is compressible, spontaneous, phasic, competent and demonstrates normal competent and demonstrates normal augmentation. augmentation. POP V is compressible, spontaneous, phasic, POP V is compressible, spontaneous, phasic, competent and demonstrates normal competent and demonstrates normal augmentation. augmentation. T/P Trunk is compressible. T/P Trunk is compressible. PTV is compressible. PTV is compressible. RT PerV is compressible. LT PerV is compressible. Procedure Thrombus filled varicose veins noted in the This is a venous duplex using B-mode, color left proximal calf. flow and spectral Doppler. Exam performed portable in ED. A preliminary report was called and/or faxed to ED RN. VL/Venous Duplex US - Dc Extrem Interpretation Summary Acute superficial vein thrombosis noted in left calf varicosities. Deep veins of the bilateral lower extremities are patent and compressible segme ntally. There is no evidence of bilateral lower extremity deep vein thrombosis. The bilateral great saphenous veins appear patent and compressible segmentally. Ordering Physician: Rashid Lopez Referring Physician: Re Harley Performed By: Rosibel Estrada RVT
--- NOTE | 2023-05-31 14:10 | EDS_ITS ---
HPI History of Present Illness Chief Complaint: Lower Extremity Injury Detail of Chief Complaint: Swelling to both legs concern for DVT Informant: patient Narrative Narrative: Patient presents to the emergency department with swelling to the left medial calf as well as the right calf that she noticed yesterday. She is worried it may be a DVT as she had history of DVT about 50 years ago related to her . Patient denies any chest pain or shortness of breath. She denies recent travel or surgery. [facility] Medical History Long QT interval Home Medications prednisone 20 mg tablet 60 mg (3 x 20 mg) PO DAILY ##24 11/17/14 [Rx Last Taken Unknown] cephalexin 500 mg capsule 500 mg PO Q6 #20 CAPSULES 10/15/21 [Rx Last Taken Unknown] doxycycline hyclate 100 mg capsule 100 mg PO BID 21 days #42 caps 11/25/22 [Rx Last Taken Unknown] omeprazole 20 mg capsule,delayed release 20 mg PO DAILY 11/25/22 [History Last Taken Unknown] Allergy/AdvReac Type Severity Reaction Status Date / Time Iodinated Contrast Media Allergy Hives Verified 05/31/23 11:38 iodine Allergy Unknown Verified 05/31/23 11:38 Surgical History History of hip surgery History of tonsillectomy Social History Smoking Status: Never smoker substance use type: does not use ROS ROS ED Review of Systems ROS Unobtainable: other Constitutional Constitutional ED: Reports lethargy; Denies chills, fever(s), sweats or weight loss Eyes Eyes: Denies blurry vision, change in vision or diplopia ENT ENT ED: Denies rhinorrhea or sore throat Cardiovascular Cardiovascular: Denies chest pain, orthopnea or racing heartbeat Respiratory/Chest Respiratory/Chest: Denies cough, dyspnea, dyspnea on exertion, orthopnea or sputum Gastrointestinal Gastrointestinal: Denies abdominal pain, diarrhea, nausea or vomiting Genitourinary Genitourinary ED: Denies dysuria, hematuria or urinary frequency Musculoskeletal Musculoskeletal: Reports other Details: Pain and swelling to bilateral lower extremities ; Denies arthralgias, back pain, myalgias or neck pain Integumentary Denies abscess, Abrasions or rash Neurologic Neurologic: Denies headache(s) or weakness Psychiatric Psychiatric: Denies anxiety, depression or suicidal thoughts Endocrine Endocrinology: Denies polydipsia, polyphagia or polyuria Hematologic/Lymphatic Hematologic/Lymphatic: Denies easy bleeding, easy bruising or lymphadenopathy Allergic/Immunologic Allergic/Immunologic ED: Denies mouth swelling, tongue swelling or urticaria EXAM Physical Exam Const Vital Signs: 05/31/23 11:38 Temperature 97.3 F L Temperature Source Temporal Pulse Rate 56 L Respiratory Rate 14 Blood Pressure 112/92 H Blood Pressure Mean 98 Pulse Ox 98 Oxygen Delivery Method Room Air Positive well nourished and well developed General Appearance ED: well developed and NAD HEENT Reports TM's clear and moist mucous membranes normocephalic and atraumatic; Negative for trauma or tenderness Tympanic Membrane ED: Yes TM's clear Eyes PERRL and EOMs intact bilaterally General Eye ED: Negative for pale conjunctiva or scleral icterus Neck no lymphadenopathy, supple and no JVD General: Negative for tenderness Chest Wall inspection of chest normal and palpation of chest normal Chest: Negative for tenderness Resp normal respiratory effort and clear to auscultation bilaterally Effort and Inspection: Negative for respiratory distress or pain with movement Auscultation: Negative for rhonchi, wheezes or diminished lung sounds Cardio regular rate, regular rhythm, S1 normal heart sound, S2 normal heart sound and no murmurs Peripheral Pulses: pulses 2+ throughout GI normal to inspection, nondistended, normoactive bowel sounds, soft to palpation, non-tender, non-distended and no masses Back/Spine no CVA tenderness and no thoracic nor lumbar tenderness Extremity Extremity Narrative: Left leg-over the area of the medial proximal calf there is area of firmness and induration suspicious for venous varicosity. Slightly tender to palpation. No significant edema of the extremity noted. Neurovascular intact distally. Patient also has some tenderness over the medial portion of the right calf. No ropes or cords palpated here. General Extremety ED: Negative for edema General Extremity: Negative for edema Neuro oriented x3, CN's II-XII intact bilaterally, no sensory deficits noted and gait normal Sensorium / Orientation: awake, alert, oriented to person, oriented to place and oriented to time Motor Exam: strength 5/5 throughout and strength abnormal Psych mental status grossly normal Skin no rashes or lesions noted and no wounds MDM MDM MDM Narrative Medical decision making narrative: Patient presents with pain and swelling to both lower extremities. Patient concerned about DVT. In the differential would be superficial thrombophlebitis versus DVT. Will obtain venous Dopplers of both lower extremities to evaluate further. Patient had a venous Doppler of both lower extremities which was negative for DVT. Patient did have thrombus filled varicose vein in the left proximal calf. At this point patient will be treated as superficial thrombophlebitis/varicosity. Recommended warm compresses and anti-inflammatory medicine. Will refer to Dr. Whipple vascular surgery for follow-up. Patient advised to return if increasing pain and swelling, chest pain, shortness of breath, or if condition should worsen anyway. Discharge Plan Triage Chief Complaint: Lower Extremity Injury ED Provider: Rashid Lopez Dx/Rx/DC Orders Clinical Impression: Superficial thrombophlebitis Instructions: ED Thrombophlebitis, Superficial Prescriptions: No Action prednisone 20 MG tablet 60 mg PO DAILY Qty: 24 0RF Rx Instructions: 3 tabs po day 1-4, then 2 tabs po day 5-8, then 1 tab day 9-12 cephalexin [cephalexin] 500 mg capsule 500 mg PO Q6 Qty: 20 0RF omeprazole 20 mg capsule,delayed release(DR/EC) 20 mg PO DAILY Patient Comments: TAKE 1 CAPSULE BY MOUTH EVERY DAY 30-45 minutes before a meal/snack doxycycline hyclate 100 mg capsule 100 mg PO BID 21 Days Qty: 42 0RF Primary Care Provider: Re Harley Referrals: Malik Whipple MD [Med Staff - Active Staff] - 5-7 Days Re Harley MD [Primary Care Provider] - Disposition Disposition: Home, Self Care Discharge Date/Time: 05/31/23 15:23
== END 2023-05-31 15:23 | disposition home or self-care (01) ==
PROVIDERS: Emergency Provider Emergency Medicine; PCP Family Medicine; Visit Provider Emergency Medicine
DX: I80.02 Phlebitis and thrombophlebitis of superficial vessels of left lower extremity (principal)
CPT/HCPCS: 93970; 99282

== ENCOUNTER → 2023-06-20 | Outpatient (CLI) | payer MEDICARE, OTHER, SELFPAY ==
--- OUTSIDE RECORDS SUMMARY | 2023-06-20 11:27 | XMS RPT_ITS | CCD ---
Author Name Unknown Address [address] [place] [address] Organization [facility] Care Team Providers Care Pattern Marking Supervisor Name Role Phone Edmar SHARMA, Amol Bautista Primary Care Provider KATLIN PITTS Attending Unavailable AMOL HYATT Primary Care Unavailable KAROL MAZA Referring Unavailable KATLIN PITTS Attending Unavailable AMOL HYATT Primary Care Unavailable KAROL MAZA Referring Unavailable KATLIN PITTS Attending Unavailable AMOL HYATT Primary Care Unavailable KAROL MAZA Referring Unavailable KAROL MAZA Referring Unavailable KATLIN PITTS Attending Unavailable AMOL HYATT Primary Care Unavailable KAROL MAZA Referring Unavailable KATLIN PITTS Attending Unavailable AMOL HYATT Primary Care Unavailable AMOL HYATT Primary Care Unavailable KATLIN PITTS Attending Unavailable KAROL MAZA Referring Unavailable AMOL HYATT Primary Care Unavailable KAROL MAZA Attending Unavailable AMOL HYATT Primary Care Unavailable AMOL HYATT Primary Care Unavailable AMOL HYATT Referring Unavailable KAROL MAZA Attending Unavailable AMOL HYATT Primary Care Unavailable KAROL MAZA Referring Unavailable Allergies Allergy Classification Reported Allergen(s) Allergy Type Date of Onset Reaction(s) Facility (9 sources) Iodine; Translations: [IODINE] Drug Allergy 6 Itching, Other: See Comments [facility] (8 sources) Enviromental [Other] Propensity to adverse reactions 2 [facility] (1 source) OTHER; Translations: [OTHER] Propensity to adverse reactions (disorder) 2 [facility] Medications Completed/Discontinued Medications Medication Drug Class(es) Dates Sig (Normalized) Sig (Original) acetaminophen 325 mg oral tablet (8 sources) take 2 tablets by mouth every six hours as needed acetaminophen (TYLENOL) 325 mg tablet Take 650 mg by mouth every 6 hours as needed. 0 Active Problems Active Problems Problem Classification Problem Date Documented Da te Episodic/Chronic Conduction disorders (8 sources) Long QT syndrome; Translations: [Long QT syndrome] 09-06-2006 Chronic Menopausal disorders (8 sources) Menopausal and postmenopausal disorders; Translations: [Other specified menopausal and perimenopausal disorders] Onset: 10-31-2007 10-31-2007 Chronic Osteoporosis (8 sources) Osteoporosis; Translations: [Other osteoporosis without current pathological fracture] 12-10-2008 Chronic Other bone disease and musculoskeletal deformities (1 source) Idiopathic scoliosis; Translations: [Other idiopathic scoliosis, cervical region] Chronic Other bone disease and musculoskeletal deformities (13 sources) Somatic dysfunction of lumbar region; Translations: [Segmental and somatic dysfunction of lumbar region] Onset: 01-11-2022 Episodic Other bone disease and musculoskeletal deformities (1 source) Segmental and somatic dysfunction of lumbar region; Translations: [Somatic dysfunction of lumbar region] Onset: 01-11-2022 Episodic Other inflammatory condition of skin (8 sources) Rosacea; Translations: [Rosacea, unspecified] Onset: 08-30-2004 08-30-2004 Chronic Spondylosis; intervertebral disc disorders; other back problems (15 sources) Degeneration of lumbosacral intervertebral disc; Translations: [Other intervertebral disc degeneration, lumbosacral region] Onset: 01-11-2022 Chronic Spondylosis; intervertebral disc disorders; other back problems (15 sources) Lumbar radiculopathy; Translations: [Radiculopathy, lumbar region] Onset: 01-11-2022 Episodic Past or Other Problems Problem Classification Problem Date Documented Da te Episodic/Chronic Abdominal hernia (8 sources) Paraesophageal hernia; Translations: [Diaphragmatic hernia without obstruction or gangrene] Onset: 06-04-2015 06-04-2015 Episodic Other bone disease and musculoskeletal deformities (8 sources) Disorder of skeletal system; Translations: [Disorder of bone, unspecified] Onset: 10-31-2007 10-31-2007 Episodic Other circulatory disease (8 sources) Labile hypertension due to being in a clinical environment; Translations: [Elevated blood-pressure reading, without diagnosis of hypertension] Onset: 12-10-2012 12-10-2012 Episodic Other non-traumatic joint disorders (8 sources) Greater trochanteric pain syndrome of left lower limb; Translations: [Pain in left hip] Onset: 12-07-2017 12-07-2017 Episodic Results Test Name Value Interpretation Reference Range Facil ity Vital Signs Date Time Vital Sign Value Performing Clinician Jelani alberts 02-17-2022 13:08-0400 Body height 156.2 cm Karol Maza PA-C Work Phone: [facility] 02-17-2022 13:08-0400 Body weight 62.14 kg Karol GHOSHC Work Phone: [facility] 02-17-2022 13:08-0400 Diastolic blood pressure 76 mm[Hg] Karol GHOSHC Work Phone: [facility] 02-17-2022 13:08-0400 Heart rate 64 /min Karol GHOSHC Work Phone: [facility] 02-17-2022 13:08-0400 SaO2% (BldA) [Mass fraction] 95 % Karol GHOSHC Work Phone: [facility] 02-17-2022 13:08-0400 Systolic blood pressure 155 mm[Hg] Karol GHOSHC Work Phone: [facility] 12-30-2021 10:16-0400 Body height 156.2 cm Karol GHOSHC Work Phone: [facility] 12-30-2021 10:16-0400 Body weight 62.55 kg Karol RUBIN-C Work Phone: [facility] 12-30-2021 10:16-0400 Diastolic blood pressure 64 mm[Hg] Karol RUBIN-C Work Phone: [facility] 12-30-2021 10:16-0400 Heart rate 57 /min Karol RUBIN-C Work Phone: [facility] 12-30-2021 10:16-0400 SaO2% (BldA) [Mass fraction] 99 % Karol RUBIN-C Work Phone: [facility] 12-30-2021 10:16-0400 Systolic blood pressure 155 mm[Hg] Karol RUBIN-C Work Phone: [facility] Encounters Encounter Date Encounter Type Care Provider Facility Start: 02-17-2022 End: 02-17-2022 ambulatory KAROL MAZA Facility:[facility] Start: 02-17-2022 End: 02-17-2022 Patient encounter procedure Karol Maza PA-C Work Phone: [facility] Procedures Date Procedure Procedure Detail Performing Clinician Start: 12-30-2021 Radex spine lumbosac ral minimum 4 views Karol Maza PA-C Work Phone: Plan of Treatment Date Care Activity Detail Author Start: 12-30-2021 Influenza vaccination INFLUENZA (#1) [facility] Start: 06-05-2021 COVID-19 VACCINE (4 - Booster for Pfizer series) COVID-19 VACCINE (4 - Booster for Pfizer series) [facility] Start: 05-01-2021 ADVANCE DIRECTIVE DISCUSSION ADVANCE DIRECTIVE DISCUSSION [facility] Start: 05-01-2021 DEPRESSION ASSESSMENT DEPRESSION ASSESSMENT [facility] Start: 03-30-2021 COVID-19 VACCINE (4 - Booster for Pfizer series) COVID-19 VACCINE (4 - Booster for Pfizer series) [facility] Start: 11-23-2020 DIABETES SCREEN DIABETES SCREEN [facility] Start: 10-12-2006 Urine microalbumin profile DTAP,TDAP,TD (1 - Tdap) [facility] Start: 09-01-1991 SHINGRIX VACCINE (1 of 2) SHINGRIX VACCINE (1 of 2) [facility] Start: 1952 Adult depression screening assessment DEPRESSION SCREENING [facility] PT PLAN OF CARE CERTIFICATION PT PLAN OF CARE CERTIFICATION Procedures Routine Somatic dysfunction of lumbar region Degeneration of lumbar or lumbosacral intervertebral disc Lumbar radiculopathy Ordered: 01/11/2022 [facility] Immunizations Immunization Date Immunization Notes Care Provider Fa belinda 02-06-2017 influenza, high dose seasonal, preservative-free Karol Maza PA-C Work Phone: [facility] 03-02-2015 pneumococcal conjuga te vaccine, 13 valent Karol Maza PA-C Work Phone: [facility] 01-14-2014 influenza, seasonal, injectable Karol Maza PA-C Work Phone: [facility] 02-14-2012 influenza virus vacc ine, unspecified formulation Karol Maza PA-C Work Phone: [facility] 02-08-2011 influenza virus vacc ine, unspecified formulation Karol Maza PA-C Work Phone: [facility] 02-15-2010 influenza virus vacc ine, unspecified formulation Karol Maza PA-C Work Phone: [facility] 10-11-2006 pneumococcal polysaccharide vaccine, 23 valent Karol Maza PA-C Work Phone: [facility] 10-11-2006 tetanus and diphther ia toxoids, adsorbed, preservative free, for adult use (2 Lf of tetanus toxoid and 2 Lf of diphtheria toxoid) Karol Maza PA-C Work Phone: [facility] Payers Date Payer Category Payer Private Health Insurance [facility] [employer] [id number] 2018-Present [phone] [address] [place] [address] Indemnity [id number] 2018 Unknown [id number] 2011 Medicare MEDICARE MEDICAR E A AND B [id number] 2011-Present [phone] [address] [address] [place] [address] Medicare [id number] 2011 Medicare [id number] Social History Date Type Detail Facility Start: 10-23-2014 Tobacco smoking stat us NDIS Never smoked tobacco [facility] Start: 10-23-2014 Tobacco use and exposure Smoke less tobacco non-user [facility] Start: 12-30-2021 End: 02-17-2022 Alcohol intake Current drinker of alcohol (finding) [facility] Start: 12-30-2021 End: 02-17-2022 Alcohol intake [facility] Start: 12-16-2013 History SDOH Alcohol Comment one glass wine off and on, [facility] Start: 1940 Sex Assigned At Not on file C [facility] Start: 12-20-2021 End: 02-17-2022 Exposure to SARS-CoV-2 (event) Not sure [facility] Medical Equipment Procedure Code Equipment Code Equipment Origin al Text Equipment Identifier Dates Graft Tissuemend Collagen Membrane 6x5cm Soft Tissue Patch Sterile - [id number] Start: 12-07-2017 Clinical Notes 11-19-2007 to 02-17-2022 Karol Maza PA-C - 02/17/2022 12:59 PM Mihaela Pitts, PT - 02/04/2022 10:42 AM Mihaela Pitts, PT - 01/31/2022 10:37 AM Mihaela Pitts, PT - 01/24/2022 10:36 AM EDT Note Date & Type Note Facility 02-17-2022 Note HNO ID: [id number] Author: Karol Maza PA-C Service: ? Author Type: Physician Artificial Intelligence Specialist Type: Progress Notes Filed: 02/17/2022 1:51 PM Note Text: Karol Maza PA-C [facility] [address] [address] Dear Amol Hyatt MD, Naomi Siu is a pleasant 81 year old individual who comes in to the office on 02/17/2022 for follow-up regarding their Lumbar spine. Pain is always there just different level of pain. Mornings are fine, until she starts moving. Walking is painful, and standing up hurts. Cannot lay flat, repositioning a lot. . Patient is here alone today. Subjective: Compared to the last visit, symptoms have been worse. Ms. Siu is here for the Xray report. ROS: Since last visit-patient DENIES fevers, chills, night sweats, unexpected weight loss or gain, abdominal pain, progressive weakness, paralysis, loss of bowel/bladder control, saddle numbness, stumbling gait, loss of coordination. Current Outpatient Medications Medication Sig Dispense Refill brinzolamide (AZOPT) 1 % ophthalmic suspension Use 1 Drop in both eyes as needed. multivitamin ORAL tablet Take 1 tablet by mouth once daily. 0 calcium, elemental, ORAL Tab Take 1 tablet by mouth once daily. 0 cholecalciferol(VITAMIN D 1,000 UNIT TAB) Take one(1) tablet daily. 0 acetaminophen (TYLENOL) 325 mg tablet Take 650 mg by mouth every 6 hours as needed. (Patient not taking: No sig reported) iv contrast (will be provided with radiology test) CT ABD/PEL -Inject, intravenously, once for 1 dose.No IV access, insert saline lock prior to the beginning of sedation, infusion, injection of imaging exam. Discontinue saline lock post exam. If Pt. has a central line or IVAD, may access for administration according to line specific nursing protocol. Once exam is complete flush line and de-access according to line specific nursing protocol in the CT contrast administration guidelines link. (Patient not taking: No sig reported) 1 Each 0 enteric contrast (will be provided with radiology test) For CT ABD/PEL W IVCON Routine order Administer, As Directed One Time Only, via Oral, Rectal, both Oral and Rectal, Enteric Tube, Stoma or Indwelling Catheter, Enteric Contrast as designated per enteric contrast guidelines (Patient not taking: No sig reported) 1 Each 0 No current facility-administered medications for this visit. Exam: Blood pressure 155/76, pulse 64, height 156.2 cm (5' 1.5 ), weight 62.1 kg (137 lb), SpO2 95 %. Body mass index is 25.47 kg/m?. Station and Gait: Her upper body leans off to the left as she stands and walks. She is slow to mobilize and leans a little forward as well. Range of Motion: Diminished left sidebending, and all motion reproduces right paracentral back pain at lumbosacral junction Motor: She has normal motor function throughout lower extremities at 5/5 Sensory: She does not describe localized sensory diminishment anywhere throughout lower extremities Pain on Palpation: Right lumbar region above the lumbosacral junction and above the PSIS and the soft tissue. She does not have direct pain on palpation over the middle of the low back or over the facets directly. Imaging: The following study/studies were reviewed with the patient during the visit: We reviewed her December 30, 2021 lumbar plain radiographs in detail during today's visit. She noted the obvious scoliosis in the thoracolumbar region. There is minimal leg length discrepancy and no listhesis noted. Assessment/Plan: Encounter Diagnosis ICD-10-CM 1. Degeneration of lumbar or lumbosacral intervertebral disc M51.37 2. Other idiopathic scoliosis, cervical region M41.22 3. Chronic right-sided low back pain with right-sided sciatica M54.41 G89.29 RTC: on an as-needed basis (PRN) Other/Discussion: We had a discussion regarding her treatment options. She is able to manage fairly well with a single Advil every couple of days. She is very careful not to overdo any medications. She is not very interested in considering any kind of a regular muscle relaxant. We discussed consideration of localized low back injections in the facet joints nearest to the area of her most significant pain and she would like to avoid these injections if possible for now. She will check back in with me if she would like to go forward with any of the above options. She still has some right leg symptoms that go down to her lower leg and ankle area, but would not be very interested in an epidural steroid injection as a method of treatment and would not be interested in gabapentin due to the likelihood of side effects from that. She will let me know if she changes her mind on any of these concerns that she has regarding treatment options, and we can go forward with either further testing or treatment at that point in time. Time spent: 33 minute (more content not included)... [facility] 02-17-2022 History of Present illness Narrative Karol Maza PA-C [facility] [address] [place] [address] Dear Amol Hyatt MD, Naomi Siu is a pleasant 81 year old individual who comes in to the office on 02/17/2022 for follow-up regarding their Lumbar spine. Pain is always there just different level of pain. Mornings are fine, until she starts moving. Walking is painful, and standing up hurts. Cannot lay flat, repositioning a lot. . Patient is here alone today. Subjective: Compared to the last visit, symptoms have been worse. Ms. Siu is here for the Xray report. ROS: Since last visit-patient DENIES fevers, chills, night sweats, unexpected weight loss or gain, abdominal pain, progressive weakness, paralysis, loss of bowel/bladder control, saddle numbness, stumbling gait, loss of coordination. Current Outpatient Medications Medication Sig Dispense Refill brinzolamide (AZOPT) 1 % ophthalmic suspension Use 1 Drop in both eyes as needed. multivitamin ORAL tablet Take 1 tablet by mouth once daily. 0 calcium, elemental, ORAL Tab Take 1 tablet by mouth once daily. 0 cholecalciferol(VITAMIN D 1,000 UNIT TAB) Take one(1) tablet daily. 0 acetaminophen (TYLENOL) 325 mg tablet Take 650 mg by mouth every 6 hours as needed. (Patient not taking: No sig reported) iv contrast (will be provided with radiology test) CT ABD/PEL -Inject, intravenously, once for 1 dose.No IV access, insert saline lock prior to the beginning of sedation, infusion, injection of imaging exam. Discontinue saline lock post exam. If Pt. has a central line or IVAD, may access for administration according to line specific nursing protocol. Once exam is complete flush line and de-access according to line specific nursing protocol in the CT contrast administration guidelines link. (Patient not taking: No sig reported) 1 Each 0 enteric contrast (will be provided with radiology test) For CT ABD/PEL W IVCON Routine order Administer, As Directed One Time Only, via Oral, Rectal, both Oral and Rectal, Enteric Tube, Stoma or Indwelling Catheter, Enteric Contrast as designated per enteric contrast guidelines (Patient not taking: No sig reported) 1 Each 0 No current facility-administered medications for this visit. Exam: Blood pressure 155/76, pulse 64, height 156.2 cm (5' 1.5 ), weight 62.1 kg (137 lb), SpO2 95 %. Body mass index is 25.47 kg/m . Station and Gait: Her upper body leans off to the left as she stands and walks. She is slow to mobilize and leans a little forward as well. Range of Motion: Diminished left sidebending, and all motion reproduces right paracentral back pain at lumbosacral junction Motor: She has normal motor function throughout lower extremities at 5/5 Sensory: She does not describe localized sensory diminishment anywhere throughout lower extremities Pain on Palpation: Right lumbar region above the lumbosacral junction and above the PSIS and the soft tissue. She does not have direct pain on palpation over the middle of the low back or over the facets directly. Imaging: The following study/studies were reviewed with the patient during the visit: We reviewed her December 30, 2021 lumbar plain radiographs in detail during today's visit. She noted the obvious scoliosis in the thoracolumbar region. There is minimal leg length discrepancy and no listhesis noted. Assessment/Plan: Encounter Diagnosis ICD-10-CM 1. Degeneration of lumbar or lumbosacral intervertebral disc M51.37 2. Other idiopathic scoliosis, cervical region M41.22 3. Chronic right-sided low back pain with right-sided sciatica M54.41 G89.29 RTC: on an as-needed basis (PRN) Other/Discussion: We had a discussion regarding her treatment options. She is able to manage fairly well with a single Advil every couple of days. She is very careful not to overdo any medications. She is not very interested in considering any kind of a regular muscle relaxant. We discussed consideration of localized low back injections in the facet joints nearest to the area of her most significant pain and she would like to avoid these injections if possible for now. She will check back in with me if she would like to go forward with any of the above options. She still has some right leg symptoms that go down to her lower leg and ankle area, but would not be very interested in an epidural steroid injection as a method of treatment and would not be interested in gabapentin due to the likelihood of side effects from that. She will let me know if she changes her mind on any of these concerns that she has regarding treatment options, and we can go forward with either further testing or treatment at that point in time. Time spent: 33 minutes today with this patient visit. This includes [id number] time, review of chart records regarding conservative care history, spine-pertinent imaging, and communication/care coordination with referring provider, problem-specific history-taking and counseling/education regarding treatment options. This document has been created with the use of voice recognition technology. It may contain inaccuracies: (e.g. misspellings, inaccurate syntax or word sense) that have escaped review. Laura Shaffer MA documented in this encounter [facility] 02-09-2022 Note HNO ID: [id number] Author: Katlin Pitts PT Service: ? Author Type: Physical Therapist Type: Progress Notes Filed: 02/09/2022 2:08 PM Note Text: Episode Visit Count: 6 Therapist That Will Accept/Oversee The Plan Of Care: Katlin Pitts Start of Care Date: 01/11/22 Onset Date: 09/10/21 Plan of Care Certification Date: 01/11/22 Next Certification Due Date: 04/12/22 [facility] PHYSICAL THERAPY DISCONTINUANCE OF CARE PLAN OF CARE UPDATE: Assessment: Naomi Siu is discontinued from Physical Therapy services due to maximal benefit. and Patient/Clinician mutual decision to discontinue current plan of care.. Patient was seen for 6 visits from Start of Care Date: 01/11/22 to 02/09/2022 and treatment included: Therapeutic exercise, Neuromuscular re-education, Manual therapy, Self-fci management, and Gait training. Patient will be referred back to the referring physician for plan of care update due to lack of progress made. Goals for Episode of Care: created on 01/11/22 through 03/13/22 [place] in home exercise program. MET Patient will decrease pain rating by 2 points to meet minimal clinical important difference for numeric pain rating scale. NOT MET Patient will demonstrate increase in trunk strength strength to 5/5 during manual muscle testing in order to improve function for home management tasks and leisure / recreation skills. MET Perform recreational activities like prolonged walking and standing tasks without pain. NOT MET Patient Goals: Return to pain free walking long mileage, return to ADL's with less pain and ability to stand for prolonged periods of time NOT MET SUBJECTIVE: Patient Reason for Visit: Pt feels about the same, notes that she had a difficult day yesterday and had to discontinue her plans to walk due to pain increasing, is very upset by this. Functional Limitations: rising from a chair;standing;walking;walking in the community;stair negotiation;heavy exertion;physical activities;recreational activities;squatting Pain: Pain Pain Level: 7 Pain Location: Low Back/Lumbar Spine - Left Description: Sore;Sharp Frequency: With movement PROMIS Scales T-scores: mean of general population = 50. 5 points is clinically meaningfully difference Percentiles provide an indication of how the patient's score ranks in relation to the general population. Higher percentile rankings indicate better function/quality of life. 50th percentile is the average of the general population and indicates half of respondents had a worse score. T-scores: mean of general population = 50. 5 points is clinically meaningfully difference Percentiles provide an indication of how the patient's score ranks in relation to the general population. Higher percentile rankings indicate better function/quality of life. 50th percentile is the average of the general population and indicates half of respondents had a worse score. OBJECTIVE MEASURES WITH LEVEL OF FUNCTION: Lumbar Spine AROM Lumbar L Side-Bend: Moderate limitation (still causes pain) LE Strength Trunk Strength: 5/5 L Hip ABduction: 4-/5 TREATMENT: Therapeutic Exercise: 1: *Lateral lean stretch to aid in hip correction 3x10 3sec hold (against wall) 2: Reviewed HEP 3: Objective measures obtained Skilled Intervention: Patient was educated in proper exercise technique and purpose for exercises. Skilled judgment was provided in selection of appropriate interventions. Correct performance of therapeutic exercises was facilitated with verbal and visual cuing. Manual Therapy: 1: Lumbar traction 15min (felt good on back, releived symptoms today) Skilled Intervention: Manual skills to improve joint mobility, ROM, and decrease pain. Utilized anatomy knowledge of the therapist, and assessment of patient's response to intervention. Billing Therapeutic Exercise Treatment Minutes: 10 Manual TherapyTreatment Minutes: 15 Total Treatment Time Minutes (timed/untimed): 25 DENISE Campos Supervising therapist was present and guided the care of the patient for the entire session on this date. All documentation was reviewed and agreed upon. Katlin Pitts PT [facility] 02-04-2022 Note HNO ID: [id number] Author: Katlin Pitts PT Service: ? Author Type: Physical Therapist Type: Progress Notes Filed: 02/04/2022 11:10 AM Note Text: Episode Visit Count: 5 Therapist That Will Accept/Oversee The Plan Of Care: Katlin Pitts Start of Care Date: 01/11/22 Onset Date: 09/10/21 Plan of Care Certification Date: 01/11/22 Next Certification Due Date: 04/12/22 REHABILITATION AND SPORTS THERAPY PHYSICAL THERAPY TREATMENT NOTE ASSESSMENT: Naomi Siu tolerated the session with fatigue and decreased symptoms. She demonstrated improvements in lateral hip soreness. The patient will continue to benefit from ongoing skilled physical therapy to progress toward set goals. PLAN FOR NEXT VISIT: CA SUBJECTIVE: Patient Reason for Visit: Pt feels okay, notes that the lateral hip pain was worse after attempting to correct gait without shifting this week Pain: Pain Pain Level: 4 Pain Location: Low Back/Lumbar Spine - Left;Hip - Left Description: Sore;Sharp Frequency: With movement Post Treatment Pain Post Treatment Pain Level: 3 Post Treatment Pain Location: Low Back/Lumbar Spine - Left;Hip - Left Post Treatment Pain Description: Sore Post Treatment Symptoms: traction improved back/hip soreness today OBJECTIVE MEASURES WITH LEVEL OF FUNCTION: Pt notes that hip shifts and traction minimally relieved hip pain during this session TREATMENT: Therapeutic Exercise: 1: *Lateral lean stretch to aid in hip correction 3x10 3sec hold (against wall) 2: Birdogs 2x10/side 3: Front plank [id number] 4: Modified side plank 3x15/side 5: Glute bridges [id number] 6: TA bracing w/alt hip hikes 7: TA bracing w/legs bicycle Skilled Intervention: Patient was educated in proper exercise technique and purpose for exercises. Skilled judgment was provided in selection of appropriate interventions. Provided written instruction for home exercise program to facilitate proper performance and compliance. Correct performance of therapeutic exercises was facilitated with verbal, visual, and tactile cuing. Manual Therapy: 1: Lumbar traction 10min (felt good on back relaxed soreness ) 2: STM and foam roller to glute minimus push to tolerance Skilled Intervention: Manual skills to improve joint mobility, ROM, and decrease pain. Utilized anatomy knowledge of the therapist, and assessment of patient's response to intervention. Billing Therapeutic Exercise Treatment Minutes: 25 Manual TherapyTreatment Minutes: 18 Total Treatment Time Minutes (timed/untimed): 43 Zac Huerta, SPT Katlin Pitts PT Supervising therapist was present and guided the care of the patient for the entire session on this date. All documentation was reviewed and agreed upon. Katlin Pitts PT [facility] 02-04-2022 History of Present illness Narrative Episode Visit Count: 5 Therapist That Will Accept/Oversee The Plan Of Care: Katlin Pitts Start of Care Date: 01/11/22 Onset Date: 09/10/21 Plan of Care Certification Date: 01/11/22 Next Certification Due Date: 04/12/22 REHABILITATION AND SPORTS THERAPY PHYSICAL THERAPY TREATMENT NOTE ASSESSMENT: Naomi Siu tolerated the session with fatigue and decreased symptoms. She demonstrated improvements in lateral hip soreness. The patient will continue to benefit from ongoing skilled physical therapy to progress toward set goals. PLAN FOR NEXT VISIT: CA SUBJECTIVE: Patient Reason for Visit: Pt feels okay, notes that the lateral hip pain was worse after attempting to correct gait without shifting this week Pain: Pain Pain Level: 4 Pain Location: Low Back/Lumbar Spine - Left;Hip - Left Description: Sore;Sharp Frequency: With movement Post Treatment Pain Post Treatment Pain Level: 3 Post Treatment Pain Location: Low Back/Lumbar Spine - Left;Hip - Left Post Treatment Pain Description: Sore Post Treatment Symptoms: traction improved back/hip soreness today OBJECTIVE MEASURES WITH LEVEL OF FUNCTION: Pt notes that hip shifts and traction minimally relieved hip pain during this session TREATMENT: Therapeutic Exercise: 1: *Lateral lean stretch to aid in hip correction 3x10 3sec hold (against wall) 2: Birdogs 2x10/side 3: Front plank [id number] 4: Modified side plank 3x15/side 5: Glute bridges [id number] 6: TA bracing w/alt hip hikes 7: TA bracing w/legs bicycle Skilled Intervention: Patient was educated in proper exercise technique and purpose for exercises. Skilled judgment was provided in selection of appropriate interventions. Provided written instruction for home exercise program to facilitate proper performance and compliance. Correct performance of therapeutic exercises was facilitated with verbal, visual, and tactile cuing. Manual Therapy: 1: Lumbar traction 10min (felt good on back relaxed soreness ) 2: STM and foam roller to glute minimus push to tolerance Skilled Intervention: Manual skills to improve joint mobility, ROM, and decrease pain. Utilized anatomy knowledge of the therapist, and assessment of patient's response to intervention. Billing Therapeutic Exercise Treatment Minutes: 25 Manual TherapyTreatment Minutes: 18 Total Treatment Time Minutes (timed/untimed): 43 Zac Huerta, DENISE Pitts PT Supervising therapist was present and guided the care of the patient for the entire session on this date. All documentation was reviewed and agreed upon. Katlin Pitts PT documented in this encounter [facility] 01-31-2022 Note HNO ID: [id number] Author: Katlin Pitts PT Service: ? Author Type: Physical Therapist Type: Progress Notes Filed: 01/31/2022 11:06 AM Note Text: Episode Visit Count: 4 Therapist That Will Accept/Oversee The Plan Of Care: Katlin Pitts Start of Care Date: 01/11/22 Onset Date: 09/10/21 Plan of Care Certification Date: 01/11/22 Next Certification Due Date: 04/12/22 REHABILITATION AND SPORTS THERAPY PHYSICAL THERAPY TREATMENT NOTE ASSESSMENT: Naomi Siu tolerated the session with decreased symptoms. She demonstrated difficulty with lateral lean with hips shifted the the left. The patient will continue to benefit from ongoing skilled physical therapy to progress toward set goals. PLAN FOR NEXT VISIT: Lateral lean gait training SUBJECTIVE: Patient Reason for Visit: Pt feels about the same as last session, feels the exercises have been good but haven't really impacted her low back pain radiating into hip Pain: Pain Pain Level: 4 Pain Location: Low Back/Lumbar Spine - Right Description: Sore Frequency: Intermittent Post Treatment Pain Post Treatment Pain Level: 3 Post Treatment Pain Location: Low Back/Lumbar Spine - Right Post Treatment Pain Description: Sore Post Treatment Symptoms: Notes that lateral weight shift into wall helped with Hip pain, felt relieving OBJECTIVE MEASURES WITH LEVEL OF FUNCTION: Posture / Alignment Posture: Lateral Shift (to the left) TREATMENT: Therapeutic Exercise: 1: *Lateral lean stretch to aid in hip correction (against wall) Skilled Intervention: Patient was educated in proper exercise technique and purpose for exercises. Reviewed and educated patient on additions/changes for home exercise program* Skilled judgment was provided in selection of appropriate interventions. Provided written instruction for home exercise program to facilitate proper performance and compliance. Correct performance of therapeutic exercises was facilitated with verbal and visual cuing. Manual Therapy: 1: Lumbar traction 10min (felt good on back did not impact hip pain) Skilled Intervention: Manual skills to improve joint mobility, ROM, and decrease pain. Utilized anatomy knowledge of the therapist, and assessment of patient's response to intervention. Gait Trainin: Gait training with mirror cueing for lateral lean correction during cycle Skilled Intervention: Facilitated proper gait cycle with the use of verbal and visual cues for correction of gait deviations identified in the objective section above. Provided written instruction for home program to facilitate proper performance and compliance. Billing Therapeutic Exercise Treatment Minutes: 10 Manual TherapyTreatment Minutes: 10 Gait Training Treatment Minutes: 20 Total Treatment Time Minutes (timed/untimed): 40 DENISE Campos Supervising therapist was present and guided the care of the patient for the entire session on this date. All documentation was reviewed and agreed upon. Katlin Pitts PT [facility] 01-31-2022 History of Present illness Narrative Episode Visit Count: 4 Therapist That Will Accept/Oversee The Plan Of Care: Katlin Pitts Start of Care Date: 01/11/22 Onset Date: 09/10/21 Plan of Care Certification Date: 01/11/22 Next Certification Due Date: 04/12/22 REHABILITATION AND SPORTS THERAPY PHYSICAL THERAPY TREATMENT NOTE ASSESSMENT: Naomi Siu tolerated the session with decreased symptoms. She demonstrated difficulty with lateral lean with hips shifted the the left. The patient will continue to benefit from ongoing skilled physical therapy to progress toward set goals. PLAN FOR NEXT VISIT: Lateral lean gait training SUBJECTIVE: Patient Reason for Visit: Pt feels about the same as last session, feels the exercises have been good but haven't really impacted her low back pain radiating into hip Pain: Pain Pain Level: 4 Pain Location: Low Back/Lumbar Spine - Right Description: Sore Frequency: Intermittent Post Treatment Pain Post Treatment Pain Level: 3 Post Treatment Pain Location: Low Back/Lumbar Spine - Right Post Treatment Pain Description: Sore Post Treatment Symptoms: Notes that lateral weight shift into wall helped with Hip pain, felt relieving OBJECTIVE MEASURES WITH LEVEL OF FUNCTION: Posture / Alignment Posture: Lateral Shift (to the left) TREATMENT: Therapeutic Exercise: 1: *Lateral lean stretch to aid in hip correction (against wall) Skilled Intervention: Patient was educated in proper exercise technique and purpose for exercises. Reviewed and educated patient on additions/changes for home exercise program* Skilled judgment was provided in selection of appropriate interventions. Provided written instruction for home exercise program to facilitate proper performance and compliance. Correct performance of therapeutic exercises was facilitated with verbal and visual cuing. Manual Therapy: 1: Lumbar traction 10min (felt good on back did not impact hip pain) Skilled Intervention: Manual skills to improve joint mobility, ROM, and decrease pain. Utilized anatomy knowledge of the therapist, and assessment of patient's response to intervention. Gait Trainin: Gait training with mirror cueing for lateral lean correction during cycle Skilled Intervention: Facilitated proper gait cycle with the use of verbal and visual cues for correction of gait deviations identified in the objective section above. Provided written instruction for home program to facilitate proper performance and compliance. Billing Therapeutic Exercise Treatment Minutes: 10 Manual TherapyTreatment Minutes: 10 Gait Training Treatment Minutes: 20 Total Treatment Time Minutes (timed/untimed): 40 DENISE Campos Supervising therapist was present and guided the care of the patient for the entire session on this date. All documentation was reviewed and agreed upon. Katlin Pitts PT documented in this encounter [facility] 01-24-2022 Note HNO ID: [id number] Author: Katlin Pitts PT Service: ? Author Type: Physical Therapist Type: Progress Notes Filed: 01/24/2022 11:17 AM Note Text: Episode Visit Count: 3 Therapist That Will Accept/Oversee The Plan Of Care: Katlin Pitts Start of Care Date: 01/11/22 Onset Date: 09/10/21 Plan of Care Certification Date: 01/11/22 Next Certification Due Date: 04/12/22 REHABILITATION AND SPORTS THERAPY PHYSICAL THERAPY TREATMENT NOTE ASSESSMENT: Naomi Siu tolerated the session with no issues besides L hip tightness. She demonstrated improvements in core strength and stability. The patient will continue to benefit from ongoing skilled physical therapy to progress toward set goals. PLAN FOR NEXT VISIT: Assess lateral lean with self-correction or manual correction SUBJECTIVE: Patient Reason for Visit: Pt feels okay, stiffness in low back from yardwork and moving a fridge yesterday, felt no issues with last session Pain: Pain Pain Level: 4 Pain Location: Low Back/Lumbar Spine - Left Description: Tightness Frequency: At rest OBJECTIVE MEASURES WITH LEVEL OF FUNCTION: Form cued throughout the session for pt safety TREATMENT: Therapeutic Exercise: 1: SKC [id number] 2: Side plank [id number]/side 3: Front plank [id number] 4: Birddogs 3x10/side 5: Step ups onto 6inch box 2x20/leg 6: Glute bridges [id number] 7: Anjel curl up 3sec hold/10side ([place] tightness in L Hip) Skilled Intervention: Patient was educated in proper exercise technique and purpose for exercises. Skilled judgment was provided in selection of appropriate interventions. Correct performance of therapeutic exercises was facilitated with verbal, visual, and tactile cuing. Manual Therapy: 1: STM and palpation to glute medius and minimus push to tolerance Skilled Intervention: Manual skills to improve joint mobility, ROM, and decrease pain. Utilized anatomy knowledge of the therapist, and assessment of patient's response to intervention. Self-Skilled Nursing Management: 1: *Self STM w/lacrosse ball to glute medius and discussed foam rolling the area as well Skilled Intervention: Skilled judgment in the selection of proper modification for activity of daily living/home management based on clinical presentation, deficits, and needs. Activity progression based on professional judgement. Billing Therapeutic Exercise Treatment Minutes: 35 Manual TherapyTreatment Minutes: 5 Self-Care/Home Management Treatment Minutes: 3 Total Treatment Time Minutes (timed/untimed): 43 Zac Huerta, SPT Katlin Pitts PT Direct supervision was provided by the licensed physical therapist for the entire treatment session and licensed provider made all clinical decisions. [facility] 01-24-2022 History of Present illness Narrative Episode Visit Count: 3 Therapist That Will Accept/Oversee The Plan Of Care: Katlin Pitts Start of Care Date: 01/11/22 Onset Date: 09/10/21 Plan of Care Certification Date: 01/11/22 Next Certification Due Date: 04/12/22 REHABILITATION AND SPORTS THERAPY PHYSICAL THERAPY TREATMENT NOTE ASSESSMENT: Naomi Siu tolerated the session with no issues besides L hip tightness. She demonstrated improvements in core strength and stability. The patient will continue to benefit from ongoing skilled physical therapy to progress toward set goals. PLAN FOR NEXT VISIT: Assess lateral lean with self-correction or manual correction SUBJECTIVE: Patient Reason for Visit: Pt feels okay, stiffness in low back from yardwork and moving a fridge yesterday, felt no issues with last session Pain: Pain Pain Level: 4 Pain Location: Low Back/Lumbar Spine - Left Description: Tightness Frequency: At rest OBJECTIVE MEASURES WITH LEVEL OF FUNCTION: Form cued throughout the session for pt safety TREATMENT: Therapeutic Exercise: 1: SKC [id number] 2: Side plank [id number]/side 3: Front plank [id number] 4: Birddogs 3x10/side 5: Step ups onto 6inch box 2x20/leg 6: Glute bridges [id number] 7: Anjel curl up 3sec hold/10side ([place] tightness in L Hip) Skilled Intervention: Patient was educated in proper exercise technique and purpose for exercises. Skilled judgment was provided in selection of appropriate interventions. Correct performance of therapeutic exercises was facilitated with verbal, visual, and tactile cuing. Manual Therapy: 1: STM and palpation to glute medius and minimus push to tolerance Skilled Intervention: Manual skills to improve joint mobility, ROM, and decrease pain. Utilized anatomy knowledge of the therapist, and assessment of patient's response to intervention. Self-Skilled Nursing Management: 1: *Self STM w/lacrosse ball to glute medius and discussed foam rolling the area as well Skilled Intervention: Skilled judgment in the selection of proper modification for activity of daily living/home management based on clinical presentation, deficits, and needs. Activity progression based on professional judgement. Billing Therapeutic Exercise Treatment Minutes: 35 Manual TherapyTreatment Minutes: 5 Self-Care/Home Management Treatment Minutes: 3 Total Treatment Time Minutes (timed/untimed): 43 Zac Huerta, SPT Katlin Pitts PT Direct supervision was provided by the licensed physical therapist for the entire treatment session and licensed provider made all clinical decisions. documented in this encounter [facility] 01-21-2022 Note HNO ID: [id number] Author: Katlin Pitts PT Service: ? Author Type: Physical Therapist Type: Progress Notes Filed: 01/24/2022 8:21 AM Note Text: Episode Visit Count: 2 Therapist That Will Accept/Oversee The Plan Of Care: Katlin Pitts Start of Care Date: 01/11/22 Onset Date: 09/10/21 Plan of Care Certification Date: 01/11/22 Next Certification Due Date: 04/12/22 REHABILITATION AND SPORTS THERAPY PHYSICAL THERAPY TREATMENT NOTE ASSESSMENT: Naomi Siu tolerated the session with fatigue. She demonstrated difficulty with L hip pain. The patient will continue to benefit from ongoing skilled physical therapy to progress toward set goals. PLAN FOR NEXT VISIT: Continue progressing neutral spine core strengthening SUBJECTIVE: Patient Reason for Visit: Pt feels okay, notes some pain yesterday in back so she did not do exercises, did them this morning though Pain: Pain Pain Level: 5 Pain Location: Low Back/Lumbar Spine - Left (L hip) Description: Sore Frequency: With movement OBJECTIVE MEASURES WITH LEVEL OF FUNCTION: Pt cued for form throughout the session TREATMENT: Therapeutic Exercise: 1: TA bracing 5sec holds (aggravated pain in L hip) 2: Face pulls GTB 3x10 3: *Birddogs 3sec hold/side 4: *modified side plank [id number]/side 5: pallof press BTB 2x10 6: Stir the pot GTB 2x10 7: [facility] curl up 3sec hold x10/side 8: *Glute bridges x10 Skilled Intervention: Patient was educated in proper exercise technique and purpose for exercises. Reviewed and educated patient on additions/changes for home exercise program as above (*). Skilled judgment was provided in selection of appropriate interventions. Provided written instruction for home exercise program to facilitate proper performance and compliance. Correct performance of therapeutic exercises was facilitated with verbal, visual, and tactile cuing. Self-Skilled Nursing Management: 1: Discussed HEP and reviewed proper form for exercises with cueing as needed Skilled Intervention: Skilled judgment in the selection of proper modification for activity of daily living/home management based on clinical presentation, deficits, and needs. Educated the patient regarding recommendations and provided written instruction to facilitate compliance. Activity progression based on professional judgement. Billing Therapeutic Exercise Treatment Minutes: 40 Self-Care/Home Management Treatment Minutes: 3 Total Treatment Time Minutes (timed/untimed): 43 Zac Huerta, SPT Katlin Pitts PT Supervising therapist was present and guided the care of the patient for the entire session on this date. All documentation was reviewed and agreed upon. Katlin Pitts, PT [facility] 01-21-2022 History of Present illness Narrative Episode Visit Count: 2 Therapist That Will Accept/Oversee The Plan Of Care: Katlin Pitts Start of Care Date: 01/11/22 Onset Date: 09/10/21 Plan of Care Certification Date: 01/11/22 Next Certification Due Date: 04/12/22 REHABILITATION AND SPORTS THERAPY PHYSICAL THERAPY TREATMENT NOTE ASSESSMENT: Naomi Siu tolerated the session with fatigue. She demonstrated difficulty with L hip pain. The patient will continue to benefit from ongoing skilled physical therapy to progress toward set goals. PLAN FOR NEXT VISIT: Continue progressing neutral spine core strengthening SUBJECTIVE: Patient Reason for Visit: Pt feels okay, notes some pain yesterday in back so she did not do exercises, did them this morning though Pain: Pain Pain Level: 5 Pain Location: Low Back/Lumbar Spine - Left (L hip) Description: Sore Frequency: With movement OBJECTIVE MEASURES WITH LEVEL OF FUNCTION: Pt cued for form throughout the session TREATMENT: Therapeutic Exercise: 1: TA bracing 5sec holds (aggravated pain in L hip) 2: Face pulls GTB 3x10 3: *Birddogs 3sec hold/side 4: *modified side plank [id number]/side 5: pallof press BTB 2x10 6: Stir the pot GTB 2x10 7: Anjel curl up 3sec hold x10/side 8: *Glute bridges x10 Skilled Intervention: Patient was educated in proper exercise technique and purpose for exercises. Reviewed and educated patient on additions/changes for home exercise program as above (*). Skilled judgment was provided in selection of appropriate interventions. Provided written instruction for home exercise program to facilitate proper performance and compliance. Correct performance of therapeutic exercises was facilitated with verbal, visual, and tactile cuing. Self-Skilled Nursing Management: 1: Discussed HEP and reviewed proper form for exercises with cueing as needed Skilled Intervention: Skilled judgment in the selection of proper modification for activity of daily living/home management based on clinical presentation, deficits, and needs. Educated the patient regarding recommendations and provided written instruction to facilitate compliance. Activity progression based on professional judgement. Billing Therapeutic Exercise Treatment Minutes: 40 Self-Care/Home Management Treatment Minutes: 3 Total Treatment Time Minutes (timed/untimed): 43 Zac Huerta, SPT Katlin Pitts PT Supervising therapist was present and guided the care of the patient for the entire session on this date. All documentation was reviewed and agreed upon. Ktalin Pitts PT documented in this encounter [facility] 01-11-2022 Note HNO ID: [id number] Author: Katlin Pitts PT Service: ? Author Type: Physical Therapist Type: Progress Notes Filed: 01/11/2022 2:28 PM Note Text: Episode Visit Count: 1 Therapist That Will Accept/Oversee The Plan Of Care: Katlin Pitts Start of Care Date: 01/11/22 Onset Date: 09/10/21 Plan of Care Certification Date: 03/13/22 Patient Identified by Name and Date of : Yes REHABILITATION AND SPORTS THERAPY PHYSICAL THERAPY EVALUATION PLAN OF CARE: Assessment: Naomi Siu presents with chief complaint of right sided low back pain and right foot numbness that interferes with standing;walking;physical activities;recreational activities. She presents with impairments in ADL's, overall function, and strength. Prognosis for therapy is Good due to: good overall health status;acuteness of condition;positive past response to therapy. She will benefit from skilled therapy services to meet the goals established for this plan of care as noted below. Classification Low Back Pain Subgroup Classification: Specific exercise subgroup: recommended visits 8. Specific Exercies Subgroup Classification based on: directional preference Goals for Episode of Care: created on 01/11/22 through 03/13/22 [place] in home exercise program. Patient will decrease pain rating by 2 points to meet minimal clinical important difference for numeric pain rating scale. Patient will demonstrate increase in trunk strength strength to 5/5 during manual muscle testing in order to improve function for home management tasks and leisure / recreation skills. Perform recreational activities like prolonged walking and standing tasks without pain. Patient Goals: Return to pain free walking long mileage, return to ADL's with less pain and ability to stand for prolonged periods of time Planned Interventions, Frequency, and Duration: Current Frequency: 1x/week Duration: 8 weeks Total Number of Visits Planned: 8 Planned Treatment Interventions: Therapeutic exercise (60643);Neuromuscular re-education (78984);Manual therapy (07128);Therapeutic activities (80749);Self-fci management ([id number]) PLAN FOR NEXT VISIT: Hip and core strengthening Patient demonstrates good understanding of plan of care and treatment. The above goals and plan of care were discussed and agreed upon by patient/family. SUBJECTIVE: Naomi Siu is a 81 year old female seen today for Pt has ride sided low back pain and numbness in right foot with prolonged standing and walking Patient Goals: Return to pain free walking long mileage, return to ADL's with less pain and ability to stand for prolonged periods of time Functional Limitations: standing;walking;physical activities;recreational activities Prior Level of Function: Independent without limitations Intake Information: Prescription present Previous Treatment: Chiropractor Spine History Symptoms Location at Onset: Back Pain is Worse Always: Standing;Walking Pain is Better Always: Rest Pain: Pain Pain Level: 7 Pain Location: Low Back/Lumbar Spine - Right Description: Sharp;Shooting;Sore Frequency: With movement;Standing Post Treatment Pain Post Treatment Pain Level: 3 Post Treatment Pain Location: Back;Low Back/Lumbar Spine - Right Post Treatment Pain Description: Sore OBJECTIVE MEASURES WITH LEVEL OF FUNCTION: Posture / Alignment Posture: Lateral Shift Lumbo - Pelvic Alignment: Lateral shift of hips to left side LE Observations: Leg length discrepancy managed w/custom orthotic in right shoe Lumbar Spine AROM Lumbar Flexion: Normal Lumbar Extension: Normal Lumbar R Side Slayton: Normal Lumbar L Side Slayton: Normal Lumbar R Side-Bend: Normal Lumbar L Side-Bend: Moderate limitation (painful) Lumbar R Rotation: Normal Lumbar L Rotation: Normal LE Strength Trunk Strength: 4+/5 R Hip ABduction: 4-/5 L Hip ABduction: 3+/5 (pain) Special Tests - Hip and Spine Hip and Spine Special Tests: SLR Test;Repeated Testing SLR Test: Right Negative;Left Negative Education: Education Learning/educational needs: Home exercise program Education Provided: Yes, see treatment interventions for education provided Education Provided To: Patient TREATMENT: PT Treatment Interventions: Therapeutic Exercise Evaluation Therapeutic Exercise: 1: *SKC 3x30/side 2: *DKC [id number]/side 3: *Pallof press GTB 3X10 4: *Stir the pot GTB 3x10 5: *Extension rows GTB 3x10 6: *TA brace w/alt hip hikes 3x10/side Skilled Intervention: Patient was educated in proper exercise technique and purpose for exercises. Reviewed and educated patient on additions/changes for home exercise program as above. Skilled judgment was provided in selection of appropriate interventions. Provided written instruction for home exercise program to facilitate proper performance and compliance. Correct performance of therapeutic exercises was facilitated with verbal cuing. Bi (more content not included)... [facility] 01-11-2022 History of Present illness Narrative Episode Visit Count: 1 Therapist That Will Accept/Oversee The Plan Of Care: Katlin Pitts Start of Care Date: 01/11/22 Onset Date: 09/10/21 Plan of Care Certification Date: 03/13/22 Patient Identified by Name and Date of : Yes REHABILITATION AND SPORTS THERAPY PHYSICAL THERAPY EVALUATION PLAN OF CARE: Assessment: Naomi Siu presents with chief complaint of right sided low back pain and right foot numbness that interferes with standing;walking;physical activities;recreational activities. She presents with impairments in ADL's, overall function, and strength. Prognosis for therapy is Good due to: good overall health status;acuteness of condition;positive past response to therapy. She will benefit from skilled therapy services to meet the goals established for this plan of care as noted below. Classification Low Back Pain Subgroup Classification: Specific exercise subgroup: recommended visits 8. Specific Exercies Subgroup Classification based on: directional preference Goals for Episode of Care: created on 01/11/22 through 03/13/22 [place] in home exercise program. Patient will decrease pain rating by 2 points to meet minimal clinical important difference for numeric pain rating scale. Patient will demonstrate increase in trunk strength strength to 5/5 during manual muscle testing in order to improve function for home management tasks and leisure / recreation skills. Perform recreational activities like prolonged walking and standing tasks without pain. Patient Goals: Return to pain free walking long mileage, return to ADL's with less pain and ability to stand for prolonged periods of time Planned Interventions, Frequency, and Duration: Current Frequency: 1x/week Duration: 8 weeks Total Number of Visits Planned: 8 Planned Treatment Interventions: Therapeutic exercise (42557);Neuromuscular re-education (30047);Manual therapy (27617);Therapeutic activities (95774);Self-fci management (01754) PLAN FOR NEXT VISIT: Hip and core strengthening Patient demonstrates good understanding of plan of care and treatment. The above goals and plan of care were discussed and agreed upon by patient/family. SUBJECTIVE: Naomi Siu is a 81 year old female seen today for Pt has ride sided low back pain and numbness in right foot with prolonged standing and walking Patient Goals: Return to pain free walking long mileage, return to ADL's with less pain and ability to stand for prolonged periods of time Functional Limitations: standing;walking;physical activities;recreational activities Prior Level of Function: Independent without limitations Intake Information: Prescription present Previous Treatment: Chiropractor Spine History Symptoms Location at Onset: Back Pain is Worse Always: Standing;Walking Pain is Better Always: Rest Pain: Pain Pain Level: 7 Pain Location: Low Back/Lumbar Spine - Right Description: Sharp;Shooting;Sore Frequency: With movement;Standing Post Treatment Pain Post Treatment Pain Level: 3 Post Treatment Pain Location: Back;Low Back/Lumbar Spine - Right Post Treatment Pain Description: Sore OBJECTIVE MEASURES WITH LEVEL OF FUNCTION: Posture / Alignment Posture: Lateral Shift Lumbo - Pelvic Alignment: Lateral shift of hips to left side LE Observations: Leg length discrepancy managed w/custom orthotic in right shoe Lumbar Spine AROM Lumbar Flexion: Normal Lumbar Extension: Normal Lumbar R Side Slayton: Normal Lumbar L Side Slayton: Normal Lumbar R Side-Bend: Normal Lumbar L Side-Bend: Moderate limitation (painful) Lumbar R Rotation: Normal Lumbar L Rotation: Normal LE Strength Trunk Strength: 4+/5 R Hip ABduction: 4-/5 L Hip ABduction: 3+/5 (pain) Special Tests - Hip and Spine Hip and Spine Special Tests: SLR Test;Repeated Testing SLR Test: Right Negative;Left Negative Education: Education Learning/educational needs: Home exercise program Education Provided: Yes, see treatment interventions for education provided Education Provided To: Patient TREATMENT: PT Treatment Interventions: Therapeutic Exercise Evaluation Therapeutic Exercise: 1: *SKC 3x30/side 2: *DKC [id number]/side 3: *Pallof press GTB 3X10 4: *Stir the pot GTB 3x10 5: *Extension rows GTB 3x10 6: *TA brace w/alt hip hikes 3x10/side Skilled Intervention: Patient was educated in proper exercise technique and purpose for exercises. Reviewed and educated patient on additions/changes for home exercise program as above. Skilled judgment was provided in selection of appropriate interventions. Provided written instruction for home exercise program to facilitate proper performance and compliance. Correct performance of therapeutic exercises was facilitated with verbal cuing. Billing * Evaluation Low Complexity: 1 Unit Therapeutic Exercise Treatment Minutes: 10 Total Treatment Time Minutes (timed/untimed): 40 Zac Huerta, SPT Katlin Pitts, PT I attest that I was present, not working on other tasks, and directing the student during this visit. I have reviewed and agree with the above documentation of this student. Katlin Pitts PT documented in this encounter [facility] 12-30-2021 Note HNO ID: [id number] Author: Karol Maza PA-C Service: ? Author Type: Physician Artificial Intelligence Specialist Type: Progress Notes Filed: 12/30/2021 11:04 AM Note Text: Karol Maza PA-C [facility] [address] [place] [address] 12/30/2021 ASSESSMENT AND PLAN: Assessment : Encounter Diagnosis ICD-10-CM 1. Somatic dysfunction of lumbar region M99.03 XR LUMBAR MOTION 4V AP/LAT/ FLEX/EXT CONSULT TO PHYSICAL THERAPY 2. Degeneration of lumbar or lumbosacral intervertebral disc M51.37 XR LUMBAR MOTION 4V AP/LAT/ FLEX/EXT CONSULT TO PHYSICAL THERAPY 3. Lumbar radiculopathy M54.16 XR LUMBAR MOTION 4V AP/LAT/ FLEX/EXT CONSULT TO PHYSICAL THERAPY Discussion: Ms. Siu is a very pleasant 81-year-old female here for evaluation of chronic low back pain with intermittent right lower extremity numbness below the knee and into the foot. Standing and walking is worst for her and she has had a known lateral curvature in her low back since that she was a young girl. The patient has a daughter who is a chiropractor and has been doing some treatment there recently informally being placed on some home exercises. She has also had prior physical therapy evaluation and treatment local to her home in [facility] but the therapy seem to make her symptoms worse Overall, she maintains a very active lifestyle but has noticed that her ability to walk has appreciably diminished over the past year or so. She mobilizes well from sitting to standing posture and stands with a tilt toward her right side in the low back. Her shoulders are shifted laterally toward her right. She indicates she has right sided leg length discrepancy and shortening and uses a custom foot orthotic with about 1/4 inch lift Her gait is steady and even Left side bending reproduces left sided low back pain. No other low back motion bothers her at all and she has excellent flexion all the way to hands touching the floor. I cannot detect any focal weakness throughout lower extremity motor groups Reflexes are symmetrically hyporeflexic throughout lower extremities. Davion's are negative, ankle clonus is normal, Babinski's are downgoing or neutral. At today's visit, she does not have sensory deficit. There are no current radiographs in [facility] to review pertinent to her low back I would like her to start with a series of standing lumbar dynamic plain radiographs We discussed consideration of ongoing long term care pharmacist on more beneficial basis and documented with her daughters office or consideration of supervised PT that would also be documented in her [facility] chart. I would consider CT scan or MRI scan once these measures are complete. She may be candidate for injections, possibly medial branch blocks depending on her symptoms at the time. I would hold off on gabapentin for now because she is not experiencing significant or consistent nerve radiation symptoms Plan : DIAGNOSTIC TESTING: -X-ray views will be obtained to better evaluate bony structures. -Dynamic plain radiographs of the Lumbar spine are ordered. REFERAL FOR SERVICES: -Physical therapy will be instituted. ACTIVITY RECOMMENDATIONS: -The patient is encouraged to avoid bed rest and maintain normal activity. -The patient is encouraged to exercise regularly as tolerated. FOLLOW-UP: -The patient is instructed to follow up after studies are complete. -The patient is instructed to return after six weeks of therapy. ADDITIONAL DISCUSSION: -We discussed the difference between hurt vs harm as it relates to chronic pain. This document has been created with the use of voice recognition technology. It may contain inaccuracies: (e.g. misspellings, inaccurate syntax or word sense) that have escaped review. Time spent: 45 minutes today with this patient visit. This includes [id number] time, review of chart records regarding conservative care history, spine-pertinent imaging, and communication/care coordination with referring provider, problem-specific history-taking and counseling/education regarding treatment options. cc: SELF Phone: N/A Fax: Results of consultation to be transmitted via electronic medical record for those providers who practice within [facility] or with access to [employer] via [employer] Connect, or via letter. ################################# ################################# ###### CHIEF COMPLAINT: Patient is here for the lower back pain( right side) and right hip. Pain started 10 months ago. Level of the pain is at 3/10 right now. Sometimes right leg goes numb. Standing bothers her lower back, right side and right hip. Has trouble walking. Her right leg is shorter then left. Had similar problem on the left side. Had surgery to rebuild tendons on left hip, and removed bursa. 201 (more content not included)... [facility] 12-30-2021 History of Present illness Narrative Images from the original note were not included. Karol Maza [facility]-C [facility] [address] [place] [address] 12/30/2021 ASSESSMENT AND PLAN: Assessment : Encounter Diagnosis ICD-10-CM 1. Somatic dysfunction of lumbar region M99.03 XR LUMBAR MOTION 4V AP/LAT/ FLEX/EXT CONSULT TO PHYSICAL THERAPY 2. Degeneration of lumbar or lumbosacral intervertebral disc M51.37 XR LUMBAR MOTION 4V AP/LAT/ FLEX/EXT CONSULT TO PHYSICAL THERAPY 3. Lumbar radiculopathy M54.16 XR LUMBAR MOTION 4V AP/LAT/ FLEX/EXT CONSULT TO PHYSICAL THERAPY Discussion: Ms. Siu is a very pleasant 81-year-old female here for evaluation of chronic low back pain with intermittent right lower extremity numbness below the knee and into the foot. Standing and walking is worst for her and she has had a known lateral curvature in her low back since that she was a young girl. The patient has a daughter who is a chiropractor and has been doing some treatment there recently informally being placed on some home exercises. She has also had prior physical therapy evaluation and treatment local to her home in [facility] but the therapy seem to make her symptoms worse Overall, she maintains a very active lifestyle but has noticed that her ability to walk has appreciably diminished over the past year or so. She mobilizes well from sitting to standing posture and stands with a tilt toward her right side in the low back. Her shoulders are shifted laterally toward her right. She indicates she has right sided leg length discrepancy and shortening and uses a custom foot orthotic with about 1/4 inch lift Her gait is steady and even Left side bending reproduces left sided low back pain. No other low back motion bothers her at all and she has excellent flexion all the way to hands touching the floor. I cannot detect any focal weakness throughout lower extremity motor groups Reflexes are symmetrically hyporeflexic throughout lower extremities. Davion's are negative, ankle clonus is normal, Babinski's are downgoing or neutral. At today's visit, she does not have sensory deficit. There are no current radiographs in [facility] to review pertinent to her low back I would like her to start with a series of standing lumbar dynamic plain radiographs We discussed consideration of ongoing long term care pharmacist on more beneficial basis and documented with her daughters office or consideration of supervised PT that would also be documented in her [facility] chart. I would consider CT scan or MRI scan once these measures are complete. She may be candidate for injections, possibly medial branch blocks depending on her symptoms at the time. I would hold off on gabapentin for now because she is not experiencing significant or consistent nerve radiation symptoms Plan : DIAGNOSTIC TESTING: -X-ray views will be obtained to better evaluate bony structures. -Dynamic plain radiographs of the Lumbar spine are ordered. REFERAL FOR SERVICES: -Physical therapy will be instituted. ACTIVITY RECOMMENDATIONS: -The patient is encouraged to avoid bed rest and maintain normal activity. -The patient is encouraged to exercise regularly as tolerated. FOLLOW-UP: -The patient is instructed to follow up after studies are complete. -The patient is instructed to return after six weeks of therapy. ADDITIONAL DISCUSSION: -We discussed the difference between hurt vs harm as it relates to chronic pain. This document has been created with the use of voice recognition technology. It may contain inaccuracies: (e.g. misspellings, inaccurate syntax or word sense) that have escaped review. Time spent: 45 minutes today with this patient visit. This includes [id number] time, review of chart records regarding conservative care history, spine-pertinent imaging, and communication/care coordination with referring provider, problem-specific history-taking and counseling/education regarding treatment options. cc: SELF Phone: N/A Fax: Results of consultation to be transmitted via electronic medical record for those providers who practice within [facility] or with access to [employer] via [employer], or via letter. ################################# ################################# ###### CHIEF COMPLAINT: Patient is here for the lower back pain( right side) and right hip. Pain started 10 months ago. Level of the pain is at 3/10 right now. Sometimes right leg goes numb. Standing bothers her lower back, right side and right hip. Has trouble walking. Her right leg is shorter then left. Had similar problem on the left side. Had surgery to rebuild tendons on left hip, and removed bursa. 2019 HPI: see Discussion above History of bowel or bladder dysfunction (not IBS or constipation): No History of previous spinal surgery: No History of spinal fracture: No Work Status: retired NON-OPERATIVE CARE: Medication(s): She has tried the following for relief of her symptoms: OTC NSAIDs (Aleve or Ibuprofen/Advil/Motrin) Physical Therapy: She has not had physical therapy for her current symptoms. Spinal Injections: She has not gotten prior spinal injections. Other: Chiropractice care: Current Outpatient Medications Medication Sig Dispense Refill brinzolamide (AZOPT) 1 % ophthalmic suspension Use 1 Drop in both eyes as needed. multivitamin ORAL tablet Take 1 tablet by mouth once daily. 0 calcium, elemental, ORAL Tab Take 1 tablet by mouth once daily. 0 cholecalciferol(VITAMIN D 1,000 UNIT TAB) Take one(1) tablet daily. 0 acetaminophen (TYLENOL) 325 mg tablet Take 650 mg by mouth every 6 hours as needed. (Patient not taking: Reported on 12/30/2021) iv contrast (will be provided with radiology test) CT ABD/PEL -Inject, intravenously, once for 1 dose.No IV access, insert saline lock prior to the beginning of sedation, infusion, injection of imaging exam. Discontinue saline lock post exam. If Pt. has a central line or IVAD, may access for administration according to line specific nursing protocol. Once exam is complete flush line and de-access according to line specific nursing protocol in the CT contrast administration guidelines link. (Patient not taking: Reported on 12/30/2021) 1 Each 0 enteric contrast (will be provided with radiology test) For CT ABD/PEL W IVCON Routine order Administer, As Directed One Time Only, via Oral, Rectal, both Oral and Rectal, Enteric Tube, Stoma or Indwelling Catheter, Enteric Contrast as designated per enteric contrast guidelines (Patient not taking: Reported on 12/30/2021) 1 Each 0 No current facility-administered medications for this visit. Allergies: Enviromental [Other] and Iodine PAST MEDICAL HISTORY Diagnosis Date Carpal tunnel syndrome surgery 06/08 dr dela cruz Long QT syndrome Other osteoporosis Rosacea stable for years PAST SURGICAL HISTORY Procedure Laterality Date COLONOSCOPY FLX DX W/COLLJ SPEC WHEN PFRMD [id number] Colonoscopy CORRECT BUNION,SIMPLE Bunion NEUROPLASTY &/TRANSPOS MEDIAN NRV CARPAL TUNNE 06/08 dr dela cruz bilateral REMV CATARACT INTRACAP,INSERT LENS apr 13 right and may 15 left eye SIGMOIDOSCOPY FLX DX W/COLLJ SPEC BR/WA IF PFRMD [id number] Sigmoidoscopy, flexible TONSILLECTOMY & ADENOIDECTOMY <AGE 13 Tonsil/adenoidectomy Social History Tobacco Use Smoking status: Never Smokeless tobacco: Never Substance Use Topics Alcohol use: Yes Alcohol/week: 10.0 standard drinks Comment: one glass wine off and on, Drug use: No FAMILY HISTORY Problem Relation Age of Onset Diabetes Sister Diabetes Brother Diabetes Mother type 2 last 2 years of lifer Ischemic Heart Disease Father Ischemic Heart Disease Brother stents other (stomach cancer[Other]) Mother Breast Cancer Sister Coronary Artery Disease Brother other (renal failure [Other]) Sister --> kidney transplant REVIEW OF SYSTEMS: Constitutional: (-) Fever/Chills (-) Night Sweats (+) Weight Gain (-) Weight Loss (-) Fatigue Gastrointestinal: (-) Abdominal Pain (-) Diarrhea (-) Constipation (-) Nausea/Vomiting (+) Heart Burn Cardiovascular: (-) Chest Pain (-) Palpitations (-) Lightheadedness (-) Swelling of Ankles (-) Hx Heart Surgery/Stent Respiratory: (-) Short of Breath (-) Cough (-) Snoring Neurologic: (-) Headache (-) Blurry Vision (-) Fainting Skin: (-) Rashes (-) Itching (-) Other Lesions Psychiatric: (-) Depression (-) Anxiety (-) Suicidal Thoughts Genitourinary: (-) Frequency (-) Urgency Endocrine: (-) Thyroid Disorder (-) Diabetes Hematologic: (-) Prolonged Bleeding (-) Easy Bruising ################################# ################################# ################################# ############################## PHYSICAL EXAM: Blood pressure 155/64, pulse (!) 57, height 156.2 cm (5' 1.5 ), weight 62.6 kg (137 lb 14.4 oz), SpO2 99 %. Body mass index is 25.63 kg/m . General: Patient is a(n) good historian. The patient appears approximately the recorded age and is sitting comfortably in the examining room. The patient is short in stature and is average weight in appearance. This individual has no difficulty arising from a sitting position and does not have difficulty acquiring a full, upright position when standing. Station and Gait: Normal stance, normal gait. and see further description above The patient is able to but has difficulty in attempting to walk in a tandem gait. MENTAL STATUS EXAMINATION: The patient was well groomed and casually attired. The patient had good eye contact and rapport was easy to establish. The patient appeared to be alert and oriented in all spheres. The patient's overall medical judgment appeared to be good.The patient's motivation for treatment was judged based on today's encounter to be good. SPINE: Lumbar Lordosis: Normal Thoracic Kyphosis: Normal RANGE OF MOTION: Flexion: Much better than expected for her age pain: No Extension: normal, as expected for age and weight Pain: No Lateral Bending: Right normal, as expected for age and weight Pain: No Left abnormal, decreased motion below expected for age and weight Pain: Yes, axial pain PALPATION TENDERNESS: Moderate tenderness at: posterior pelvis and gluteal region Hyperesthesia present: No Regional symptoms present: No Increased pain with axial loading: No Distraction: Normal Pain responses: appropriate NEUROLOGIC EXAM: MOTOR: Walk on Toes: Right: Yes Left: Yes Walk on Heels: Right: Yes Left: Yes Requires verbal cues to minimize cog-wheel or give-way resistance: No Hip Flexor R: 5/5 L: 5/5 Hip Adductor R: 5/5 L: 5/5 Hip Abductor R: 5/5 L: 5/5 Knee Extension R: 5/5 L: 5/5 Foot Dorsiflexion R: 5/5 L: 5/5 Foot Plantar Flexion R: 5/5 L: 5/5 Ext Hallicus Longus R: 5/5 L: 5/5 Toe Extensors R: 5/5 L: 5/5 SENSATION to Light Touch: Lumbar: L2-S1 symmetrically normal. REFLEXES: Lower Extremity: All Lower Extremity reflexes symmetrically normal. Clonus: R: 0 beats/Normal L: 0 beats/Normal Babinski Sign: Negative bilaterally. Upper Extremity: Elena's Sign: Negative bilaterally. VASCULAR: Skin appearance: Right: Warm/pink Left: Warm/pink Capillary refill: Right: brisk Left: brisk ADDITIONAL MUSCULOSKELETAL EXAM: HIP/PELVIS EXAM: Tenderness over the PSIS: Right: Yes Left: No Greater Trochanteric pain: Right: No Left: No SPECIAL TESTS: Straight Leg Raise: negative bilaterally Contralateral Straight Leg Raise: negative bilaterally IMAGING STUDIES: See discussion above documented in this encounter [facility] 08-04-2021 Note HNO ID: [id number] Author: RT Nik(Kevin) Service: Radiology Author Type: Elevator Service Technician Type: Progress Notes Filed: 08/04/2021 11:09 AM Note Text: Radiology Service Progress Note PATIENT NAME: Naomi Siu DATE OF SERVICE: August 04, 2021 TIME: 11:08 AM PATIENT IDENTITY VERIFICATION COMPLETED USING TWO (2) IDENTIFIERS: Name and Date of confirmed by patient verbally. FALL SCREENING: Has the patient had 2 falls in the last year or 1 fall with injury or currently using an Ambulatory Assistive Device (Walker, Cane, Wheelchair, Crutches, etc.)? No PATIENT GENDER DATA: Female. status: : No status: NO. 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 documented as of this encounter (statuses as of 01/11/2022) [address]21-2008 History of Past illness Narrative* Problem Noted Date Resolved Date 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 documented as of this encounter (statuses as of 01/24/2022) [address]21-2008 History of Past illness Narrative* Problem Noted Date Resolved Date 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 documented as of this encounter (statuses as of 01/31/2022) [address]21-2008 History of Past illness Narrative* Problem Noted Date Resolved Date 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 documented as of this encounter (statuses as of 02/04/2022) [address]21-2008 History of Past illness Narrative* Problem Noted Date Resolved Date 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 documented as of this encounter (statuses as of 02/17/2022) [facility] Somatic dysfunction of lumbar region- Primary Nonallopathic lesion of lumbar region, not elsewhere classified Degeneration of lumbar or lumbosacral intervertebral disc Lumbar radiculopathy Thoracic or lumbosacral neuritis or radiculitis, unspecified [facility] Diagnosis Somatic dysfunction of lumbar region Nonallopathic lesion of lumbar region, not elsewhere classified Degeneration of lumbar or lumbosacral intervertebral disc Lumbar radiculopathy Thoracic or lumbosacral neuritis or radiculitis, unspecified [facility] Diagnosis Somatic dysfunction of lumbar region- Primary Nonallopathic lesion of lumbar region, not elsewhere classified Degeneration of lumbar or lumbosacral intervertebral disc Lumbar radiculopathy Thoracic or lumbosacral neuritis or radiculitis, unspecified [facility] Diagnosis Somatic dysfunction of lumbar region- Primary Nonallopathic lesion of lumbar region, not elsewhere classified Degeneration of lumbar or lumbosacral intervertebral disc Lumbar radiculopathy Thoracic or lumbosacral neuritis or radiculitis, unspecified [facility] [place] [facility] Diagnosis Somatic dysfunction of lumbar region- Primary Nonallopathic lesion of lumbar region, not elsewhere classified Degeneration of lumbar or lumbosacral intervertebral disc Lumbar radiculopathy Thoracic or lumbosacral neuritis or radiculitis, unspecified [facility] [place] [facility]* Diagnosis Degeneration of lumbar or lumbosacral intervertebral disc- Primary Other idiopathic scoliosis, cervical 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 documented in this encounter [facility] for referral (narrative)* - Authorized Specialty Diagnoses / Procedures Referred By Contac t Referred To Contact Diagnoses Somatic dysfunction of lumbar region Degeneration of lumbar or lumbosacral intervertebral disc Lumbar radiculopathy Procedures CONSULT TO PHYSICAL THERAPY Karol Maza PA-C [address] [place] [address] Referral ID Status Reason Start Date Expiration Date V isits Requested Visits Authorized [id number] Authorized 12/30/2021 03/30/2022 99 99 * Diagnostic Procedure Only (Routine) - Closed Specialty Diagnoses / Procedures Referred By Contac t Referred To Contact XR IMAGING Diagnoses Somatic dysfunction of lumbar region Degeneration of lumbar or lumbosacral intervertebral disc Lumbar radiculopathy Procedures XR LUMBAR MOTION 4V AP/LAT/ FLEX/EXT RADEX SPINE LUMBOSACRAL MINIMUM 4 VIEWS Karol Maza PA-C [address] [place] [address] Xr Imaging Referral ID Status Reason Start Date Expiration Date V isits Requested Visits Authorized [id number] Closed Auto-Generate d Referral 12/30/2021 01/29/2023 1 1 [facility] for referral (narrative)* Diagnostic Procedure Only (Routine) - Closed Specialty Diagnoses / Procedures Referred By Contac t Referred To Contact XR IMAGING Diagnoses Somatic dysfunction of lumbar region Degeneration of lumbar or lumbosacral intervertebral disc Lumbar radiculopathy Procedures XR LUMBAR MOTION 4V AP/LAT/ FLEX/EXT RADEX SPINE LUMBOSACRAL MINIMUM 4 VIEWS Karol Maza PA-C [address] [place] [address] Xr Imaging Referral ID Status Reason Start Date Expiration Date V isits Requested Visits Authorized [id number] Closed Auto-Generate d Referral 12/30/2021 01/29/2023 1 1 [facility] for visit Narrative* Diagnostic Procedure Only (Routine) - Closed Specialty Diagnoses / Procedures Referred By Contac t Referred To Contact XR IMAGING Diagnoses Somatic dysfunction of lumbar region Degeneration of lumbar or lumbosacral intervertebral disc Lumbar radiculopathy Procedures XR LUMBAR MOTION 4V AP/LAT/ FLEX/EXT RADEX SPINE LUMBOSACRAL MINIMUM 4 VIEWS Karol Maza PA-C [address] [place] [address] Xr Imaging Referral ID Status Reason Start Date Expiration Date V isits Requested Visits Authorized [id number] Closed Auto-Generate d Referral 12/30/2021 01/29/2023 1 1 [facility] Summary Purpose Family History No Family History Records FoundNo Family History Records FoundNo Family History Records Found Advance Directives No Advanced Directives Records FoundDocuments on File Type Date Recorded Patient String Laster Expl anation Advance Directive(s) 12/07/2017 10:42 AM Documents on File Type Date Recorded Patient String Laster Expl anation Advance Directive(s) 12/07/2017 10:42 AM Additional Source Comments INFORMATION SOURCE (unrecogn ized section and content) DATE CREATED AUTHOR AUTHOR'S ORGANIZ ATION 12/31/2021 [facility] DATE CREATED AUTHOR AUTHOR'S ORGANIZ ATION 02/21/2022 [facility] Source Comments (unrecognize d section and content) In the event this informatio n is protected by the Federal Confidentiality of Alcohol and Drug Abuse Patient Records regulations: The Federal rules restrict any use of the information to criminally investigate or prosecute any alcohol or drug abuse patient.[facility] the event this information is protected by the Federal Confidentiality of Alcohol and Drug Abuse Patient Records regulations: The Federal rules restrict any use of the information to criminally investigate or prosecute any alcohol or drug abuse patient.[facility] the event this information is protected by the Federal Confidentiality of Alcohol and Drug Abuse Patient Records regulations: The Federal rules restrict any use of the information to criminally investigate or prosecute any alcohol or drug abuse patient.[facility] the event this information is protected by the Federal Confidentiality of Alcohol and Drug Abuse Patient Records regulations: The Federal rules restrict any use of the information to criminally investigate or prosecute any alcohol or drug abuse patient.[facility] the event this information is protected by the Federal Confidentiality of Alcohol and Drug Abuse Patient Records regulations: The Federal rules restrict any use of the information to criminally investigate or prosecute any alcohol or drug abuse patient.[facility] the event this information is protected by the Federal Confidentiality of Alcohol and Drug Abuse Patient Records regulations: The Federal rules restrict any use of the information to criminally investigate or prosecute any alcohol or drug abuse patient.[facility] the event this information is protected by the Federal Confidentiality of Alcohol and Drug Abuse Patient Records regulations: The Federal rules restrict any use of the information to criminally investigate or prosecute any alcohol or drug abuse patient.[facility] the event this information is protected by the Federal Confidentiality of Alcohol and Drug Abuse Patient Records regulations: The Federal rules restrict any use of the information to criminally investigate or prosecute any alcohol or drug abuse patient.[facility] Reason for Visit (unrecogniz ed section and content) Specialty Diagnoses / Procedures Referred By Carolynn t Referred To Contact Diagnoses Somatic dysfunction of lumbar region Degeneration of lumbar or lumbosacral intervertebral disc Lumbar radiculopathy Procedures CONSULT TO PHYSICAL THERAPY Karol Maza PA-C [address] [place] [address] Referral ID Status Reason Start Date Expiration Date V isits Requested Visits Authorized [id number] Authorized 12/30/2021 03/30/2022 99 99 Reason Comments New Patient Low Back Pain Right Hip Pain Reason Comments PT Eval Reason Comments Follow Up Low Back Pain Right Hip Pain Care Teams (unrecognized sec tion and content) Pattern Marking Supervisor Relationship Specialty Start Date End Date Amol Hyatt MD [address] [place], [place] [id number] PCP - General Family Practice 02/28/19 Pattern Marking Supervisor Relationship Specialty Start Date End Date Amol Hyatt MD [address] [place], [place] [id number] PCP - General Family Practice 02/28/19 Pattern Marking Supervisor Relationship Specialty Start Date End Date Amol Hyatt MD [address] [place], [place] [id number] PCP - General Family Medicine 02/28/19 Pattern Marking Supervisor Relationship Specialty Start Date End Date Amol Hyatt MD [address] [place], [place] [id number] PCP - General Family Medicine 02/28/19 Pattern Marking Supervisor Relationship Specialty Start Date End Date Amol Hyatt MD [address] [place] [address] PCP - General Family Medicine 02/28/19 Pattern Marking Supervisor Relationship Specialty Start Date End Date Amol Hyatt MD [address] [place], [place] [phone] PCP - General Family Medicine 02/28/19 FOR RECORDS PERTAINING TO PATIENTS WHO ARE OR HAVE BEEN ENROLLED IN A CHEMICAL DEPENDENCY/SUBSTANCEABUSE PROGRAM, SOME INFORMATION MAY BE OMITTED. This clinical summary was aggregated from multiple sources. Caution should be exercised in using it in the provision of clinical care. This summary normalizes information from multiple sources, and as a consequence, information in this document may materially change the coding, format and clinical context of patient data. In addition, data may be omitted in some cases. CLINICAL DECISIONS SHOULD BE BASED ON THE PRIMARY CLINICAL RECORDS. [facility]. provides no warranty or guarantee of the accuracy or completeness of information in this document.
[2023-06-20 15:30] LABS: Absolute Lymphocyte Count 2.19 X10^3/uL (0.83-4.51); Absolute Neutrophil Count 2.4 X10^3/uL (2.0-7.7); Basophil# 0.07 X10^3/uL; Basophil% 1.2 % (0-1); Eosinophil# 0.12 X10^3/uL; Eosinophils% 2.1 % (0-5); Hematocrit 43.4 % (37-47); Hemoglobin 13.8 g/dL (12.0-15.0); Lymphocyte # 2.19 X10^3/ul (0.83-4.51); Lymphocyte % 38.6 % (19-41); Mean Corp Hgb Conc 31.8 g/dL (32-36); Mean Corpuscular Hgb 29.7 pg (27.0-32.0); Mean Corpuscular Volume 93.5 fL (81-99); Mean Platelet Vol. 10.8 fl (6.2-12.0); Monocyte# 0.89 X10^3/uL; Monocyte% 15.7 % (0-10); NRBC Flagged by Analyzer 0 % (0-5); Neutrophil # 2.39 X10^3/uL (2.7-7.7); Neutrophil % 42.2 % (47-70); Platelet Count 249 K/mm3 (150-450); RBC Distribution Width CV 12.8 % (11.6-14.6); RBC Distribution Width SD 43.8 fl (35.1-43.9); Red Blood Count 4.64 M/mm3 (4.2-5.4); White Blood Count 5.7 K/mm3 (4.4-11.0)
[2023-06-20 15:50] LABS: AST(SGOT) 25 U/L (15-37); Alanine Aminotransfer ALT/SGPT 27 U/L (13-56); Albumin, Serum 3.6 g/dL (3.2-5.0); Alkaline Phosphatase 74 U/L (45-117); Anion Gap 4 (5-15); BUN 15 mg/dL (7-18); Calcium,Total 9.6 mg/dL (8.5-10.1); Chloride 105 mmol/L (98-107); Creatinine, Serum 0.94 mg/dL (0.55-1.02); EST Glomerular Filtration Rate 61 mL/min (>60); Est Glom Filt Rate - Afr Amer 74 mL/min (>60); Globulin 3.7 g/dL (2.2-4.2); Glucose 84 mg/dL (74-106); Protein, Total 7.3 g/dL (6.4-8.2); Sodium Level 138 mmol/L (136-145)
== END | disposition home or self-care (01) ==
LOC: BFHLAB 10:55
PROVIDERS: PCP Family Medicine; Visit Provider Family Medicine
DX: I10 Essential (primary) hypertension (principal); R74.8 Abnormal levels of other serum enzymes
CPT/HCPCS: 36415; 80053; 85025

== ENCOUNTER 2023-07-13 05:30 | Day surgery (SDC) | payer MEDICARE, OTHER, SELFPAY ==
--- NOTE | 2023-07-05 13:15 | RAD_ITS ---
INDICATION: PRE OP EXAMINATION/TECHNIQUE: X-RAY - XR Chest 2 Views COMPARISON: Prior study dated: 11/25/2022 FINDINGS: LINES/DEVICES: None. LUNGS: No consolidation, edema or effusion. No pneumothorax. MEDIASTINUM AND CARDIOVASCULAR STRUCTURES: Normal cardiac silhouette. Tortuosity of the thoracic aorta. BONES AND SOFT TISSUES: Stable soft tissues and osseous structures. RAD/Chest PA and Lateral IMPRESSION: No radiographic evidence of acute cardiopulmonary disease. Electronically Signed: Kareem Paul MD at 15:06 EST ,
[2023-07-05 13:47] LABS: International Normalized Ratio 1.1; Prothrombin Time (Protime)PT. 13.7 SECONDS (11.7-14.9)
[2023-07-05 13:48] LABS: Partial Thromboplast Time 28.1 Seconds (24.1-36.2)
[2023-07-13] VITALS (8 sets, daily range): BP systolic 110–163; BP diastolic 54–91; PULSE 50–80; RESP 16; TEMP 36.1–36.8; O2SAT 92–99; BMI 25.9
[2023-07-13] MEDS: 0.9% Normal Saline (1000mL) 1,000 ML 15 ML IV (06:22)
--- NOTE | 2023-07-13 07:08 | PCM.OPRPT ---
Report of Operation Date of Procedure: 07/13/23 Description of Surgical Findings:: Preop diagnosis: 1. Lumbar stenosis, L3-4 with spondylosis 2. Lumbar degenerative disc disease L3-4 Postop diagnosis: 1. Lumbar stenosis, L3-4 with spondylosis 2. Lumbar degenerative disc disease L3-4 Procedures performed: 1. L3 laminectomy decompression, bilateral foraminotomies Statement of medical necessity: The patient is a 82-year-old female with intractable back and leg pain. Image studies confirm the above diagnoses. They have failed conservative treatments to include medications physical therapy and injections and have opted for operative intervention understanding the risk to include but not limited to infection, bleeding, damage to nerves arteries and veins, possibility of spinal fluid leak, nonunion, hardware failure, continued pain, need for further surgery, deep vein thrombosis, pulmonary embolism, heart attack, risk of stroke or . Description of the procedure: The patient was identified in the preoperative holding area. There they received preoperative IV antibiotics and was then transferred to the operative suite. Once in the operative suite after general endotracheal anesthesia was established, the patient was positioned prone on the Hong operating table. All bony prominences were padded accordingly. The lumbar spine was prepped and draped in a standard fashion. Bear hugger's were not turned on until the drapes were placed and sealed with Ioban. A midline incision was made and taken down to the fascia. The fascia was divided and subperiosteal dissection was taken down to the level of the L3-4 facet joints bilaterally. Deep retractors were placed. A bone scalpel was used to make cuts in the lamina and then a series of rongeurs and Kerrisons were used removing the spinous process and lamina of L3 as well as foraminotomies decompressing the bilateral nerve roots. The incision was thoroughly irrigated. Tisseel was placed over the dura as a hemostatic agent. The fascia was closed with #1 Vicryl, subcutaneous with 2-0 Vicryl and skin with 2-0 nylon. A sterile dressing was applied with 4 x 4's ABD and tape. Sponge instrument and needle counts were correct at the end of the case. The patient was extubated and taken to the PACU without incident Surgeon: Timothy Young Type of Anesthesia: General Estimated Blood Loss (mL): 20 cc Fluids Replaced: 1100 cc Complications None Admit VTE Documentation VTE Present on Admission: No
--- NOTE | 2023-07-13 07:11 | PCM.PN.ORT ---
Subjective Subjective Lying in bed resting comfortably. Pain controlled. No complaints Objective Data Objective Data Vital Signs: Vital Signs Temp Pulse Resp BP Pulse Ox O2 Del Method 98.2 F 60 16 163/91 H 99 Room Air 07/13/23 06:22 07/13/23 06:22 07/13/23 06:22 07/13/23 06:22 07/13/23 06:22 07/13/23 06:22 Oxygen Delivery Method Room Air Weight: 137 lb 5.568 oz Body Mass Index (BMI) 25.9 Physical Exam Const alert, oriented x3 and no apparent distress General Appearance: cooperative, comfortable and well kempt HEENT normocephalic and head/scalp atraumatic Eyes EOMs intact bilaterally and conjunctivae normal Neck full ROM General: normal visual inspection Chest inspection of chest normal and palpation of chest normal Resp normal respiratory effort and normal air movement Cardio regular rate, regular rhythm and peripheral pulses 2+ throughout GI soft to palpation, non-tender and non-distended Back/Spine Back/Spine Narrative: Dressing clean dry and intact. Cervical Spine: cervical ROM normal Thoracic Spine / Upper Back: normal to inspection Lumbar Spine / Lower Back: normal to inspection Extremity normal to inspection, full ROM, normal capillary refill, no clubbing, cyanosis or edema and no calf tenderness Skin no rashes or lesions noted General Skin Exam: no breakdown Neuro oriented x3, CN's II-XII intact bilaterally, moves all extremities, no focal motor deficits, no sensory deficits noted and deep tendon reflexes 2+ bilaterally Motor Exam: muscle tone normal throughout Assessment & Plan Assessment/Plan (1) Lumbar stenosis: PLAN: Okay to discharge See discharge instructions Follow-up with Dr. Young in 3 weeks
[2023-07-13] MEDS: Cefazolin 2 GM in 0.9% Normal Saline (100mL Bag) 100 ML IV (07:36)
--- NOTE | 2023-07-13 07:45 | RAD_ITS ---
STUDY: X-RAY - LUMBAR SPINE REASON FOR EXAM: Female, 82 years old. LUMBAR 3 LAMINECTOMY DECOMPRESSION TECHNIQUE: Single lateral view of the lumbar spine were obtained. COMPARISON: None FINDINGS: The localization instrument is seen posterior to the L3-L4 disc space level. RAD/Spine 1 View Any Level IMPRESSION: The localization instrument is seen posterior to the L3-L4 disc space level. Electronically Signed: Tu Cao MD at 9:22 EDT ,
[2023-07-13] MEDS: THROMBIN (RECOMBINANT) 20,000 UNIT VIAL 20000 UNIT TOPICAL (08:06)
[2023-07-13] MEDS: Bupivacaine 0.25% 30 ML Vial (08:53)
[2023-07-13] MEDS: HYDROcodone Bitartrate/Apap 5/325 Tablet PO (11:44)
== END 2023-07-13 13:25 | disposition home or self-care (01) ==
LOC: SDC 05:30 → AC 05:31
PROVIDERS: PCP Family Medicine; Referring Provider Family Medicine; Visit Provider Orthopaedic Surgery
PROC: (CPT 63030; principal; 2023-07-13 07:00)
DX: M48.061 Spinal stenosis, lumbar region without neurogenic claudication (principal); M51.36 Other intervertebral disc degeneration, lumbar region; M47.816 Spondylosis without myelopathy or radiculopathy, lumbar region; Z86.718 Personal history of other venous thrombosis and embolism
CPT/HCPCS: 63047; 00630; 36415; 71046; 72020; 76000; 85610; 85730; J7120; J2405

== ENCOUNTER 2023-07-21 09:20 | Emergency (ER) | payer MEDICARE, OTHER, SELFPAY ==
[2023-07-21 09:21] VITALS: BP 161/82; PULSE 58; RESP 18; TEMP 36.1; O2SAT 99; BMI 25.7
--- NOTE | 2023-07-21 10:32 | EDS_ITS ---
HPI History of Present Illness Chief Complaint: Back Detail of Chief Complaint: Rash and itching around back surgery dressing site. Informant: patient Onset/Context/Timing Onset: Days Context: Gradual Onset Timing: Continuous Current Severity: Mild Maximum Severity: Mild Narrative Narrative: 82-year-old female history of spinal stenosis had back surgery a week ago last by Dr. Dwyer. Outpatient surgery. She has been doing well. She is off the pain meds. She denies any weakness or numbness to her legs. States where she has had the dressing she has developed a red rash that itches. Denies discharge or pus. No fever. Pain gets better each day. Prior similar symptoms: No Recent Illness/Hospitalization: No PFSH PFSH Medical History Alcohol use Arthritis Cardiology follow-up encounter DVT (deep venous thrombosis) Gastric reflux History of echocardiogram History of stress test Long QT interval Non-smoker Wears glasses Home Medications omeprazole 20 mg capsule,delayed release 20 mg PO DAILY 11/25/22 [History Last Taken 07/13/23] azelastine 0.05 % eye drops 1 drp ophthalmic (eye) PRN 07/07/23 [History Last Taken Unknown] calcium 250 mg tablet 750 mg PO DAILY 07/07/23 [History Last Taken 07/10/23] cholecalciferol (vitamin D3) 25 mcg (1,000 unit) capsule (Vitamin D3) 50 mcg PO DAILY 07/07/23 [History Last Taken 07/10/23] multivitamin 2 tab PO DAILY 07/07/23 [History Last Taken 07/10/23] hydrocodone-acetaminophen 5-325mg 5mg-325mg 1 tab PO Q6H 7 days #28 tabs 07/13/23 [Rx Last Taken Unknown] Allergy/AdvReac Type Severity Reaction Status Date / Time Iodinated Contrast Media Allergy Hives Verified 07/21/23 09:26 Surgical History History of bunionectomy of both great toes History of carpal tunnel release of both wrists History of hip surgery History of tonsillectomy Social History Smoking Status: Never smoker substance use type: does not use ROS ROS ED ROS Narrative Denies recent illness. Review of Systems ROS Unobtainable: Denies due to encephalopathy Constitutional Constitutional ED: Denies chills or fever(s) Eyes Eyes: Denies blurry vision ENT ENT ED: Denies ear pain, rhinorrhea or sore throat Cardiovascular Cardiovascular: Denies chest pain, orthopnea, palpitations or racing heartbeat Respiratory/Chest Respiratory/Chest: Denies cough, dyspnea, dyspnea on exertion or orthopnea Gastrointestinal Gastrointestinal: Denies abdominal pain, constipation, diarrhea, melena, nausea or vomiting Genitourinary Genitourinary ED: Denies dysuria or hematuria Musculoskeletal Musculoskeletal: Denies arthralgias, back pain, myalgias or neck pain Integumentary Reports rash; Denies abscess or Abrasions Neurologic Neurologic: Denies headache(s) Psychiatric Psychiatric: Denies anxiety or depression Endocrine Endocrinology: Denies cold intolerance Hematologic/Lymphatic Hematologic/Lymphatic: Reports none Allergic/Immunologic Allergic/Immunologic ED: Denies mouth swelling, tongue swelling or urticaria EXAM Physical Exam Narrative Exam Narrative: 82-year-old female no acute distress. Vital signs stable afebrile. H EENT exam unremarkable. Lungs clear to auscultation. Heart regular rhythm rate about 60 no murmur. Chest wall ribs nontender. Abdomen soft nontender. Moving all 4 extremities. Nontender no edema. Walking about the room. Patient is awake and alert. No focal motor deficits. Normal motor strength and sensation both lower extremities. Back exam she is a well-healing lumbar incision. It several inches long. It is dry and clean. She has a red rash around the site there is no discharge or cellulitis. This is consistent with a contact dermatitis from the dressing. Const Vital Signs: 07/21/23 09:21 Temperature 97 F L Temperature Source Temporal Pulse Rate 58 L Respiratory Rate 18 Blood Pressure 161/82 H Blood Pressure Mean 108 Pulse Ox 99 Oxygen Delivery Method Room Air Positive well nourished and well developed; Negative for obese, cachectic, contractures or unkempt General Appearance ED: well developed and NAD; Negative for unkempt, cachectic, contractures, cyanotic, diaphoretic or pallor Nutritional Appearance: Negative for cachectic or obese HEENT Reports moist mucous membranes; Denies dry mucous membranes Negative for trauma or tenderness Mouth ED: No dry mucous membranes Mouth: No dry mucous membranes Eyes PERRL and EOMs intact bilaterally General Eye ED: Negative for pale conjunctiva, scleral icterus or other Neck no lymphadenopathy, supple and no JVD General: Negative for tenderness Lymph Lymphatic: Negative for other Chest Wall inspection of chest normal and palpation of chest normal Chest: Negative for other Resp normal respiratory effort and clear to auscultation bilaterally Effort and Inspection: Negative for retractions Auscultation: Negative for rales, rhonchi, wheezes or diminished lung sounds Cardio regular rate, regular rhythm, S1 normal heart sound, S2 normal heart sound and no murmurs Palpation: Negative for palpable S3 or palpable S4 Rate: Negative for bradycardia, tachycardic or other Rhythm: Negative for abnormal rhythm GI normal to inspection, nondistended, normoactive bowel sounds, non-tender, non- distended and no masses Inspection: Negative for abdominal distention Palpation: soft; Negative for tender, guarding, splenomegaly, mass or rebound tenderness present Bladder / Kidney Exam: No other Back/Spine no CVA tenderness Back/Spine Narrative: MR spine incision dry and clean. Healing well. There is a contact dermatitis type of rash secondary to the dressing around the site. No discharge. No signs of infection. General Back: Negative for CVA tenderness Cervical Spine: Negative for cervical spine tenderness Thoracic Spine / Upper Back: Negative for thoracic spinal tenderness Extremity normal to inspection General Extremety ED: Negative for edema, tenderness or other findings General Extremity: Negative for edema or other findings Neuro oriented x3, CN's II-XII intact bilaterally and no sensory deficits noted Sensorium / Orientation: alert; Negative for orientation impaired, lethargic or stuporous Motor Exam: strength 5/5 throughout; Negative for general weakness or strength abnormal Psych mental status grossly normal Appearance: Negative for unkempt Attitude: No agitated Mood & Affect: Negative for depressed or anxious Skin No no rashes or lesions noted, no wounds and skin turgor normal General Skin Exam: elasticity normal; Negative for jaundice or pallor Lesions: No lesion noted Rashes: rashes noted Trauma: Negative for abrasion MDM MDM MDM Narrative Medical decision making narrative: 82-year-old female looks much stated than her stated age. In good health. Recent lumbar back surgery for lumbar stenosis. Has a contact dermatitis rash around the site secondary to a believe the dressing. Will change the dressing. She can use Benadryl cream around the rash. I do not want to put her on steroids at this time 1 is a local reaction to with the recent surgery I do not want to affect the healing. Patient is comfortable with the plan. There is no signs of infection. She will follow-up with her back surgeon. History & Record Review Discussion w/independent historian: Patient Discharge Plan Triage Chief Complaint: Back ED Provider: Oscar Gorman Dx/Rx/DC Orders Clinical Impression: History of back surgery, Contact dermatitis Instructions: ED Contact Dermatitis Prescriptions: No Action omeprazole 20 mg capsule,delayed release(DR/EC) 20 mg PO DAILY Patient Comments: TAKE 1 CAPSULE BY MOUTH EVERY DAY 30-45 minutes before a meal/snack azelastine 0.05 % drops 1 drp ophthalmic (eye) PRN Patient Comments: instill 1 (ONE) drop into both eyes TWICE DAILY multivitamin Tablet 2 tab PO DAILY calcium 250 mg tablet 750 mg PO DAILY cholecalciferol (vitamin D3) [Vitamin D3] 25 mcg (1,000 unit) capsule 50 mcg PO DAILY hydrocodone-acetaminophen 5-325 mg tablet 1 tab PO Q6H 7 Days Qty: 28 0RF Primary Care Provider: Re Harley Referrals: Re Harley MD [Primary Care Provider] - As Needed Activity Restrictions/Additional Instructions: We will change the dressing. Use a much smaller dressing just over the stitches. Leave this exposed to the air. Ply Benadryl cream to the rash but not the stitches twice a day till the rash is gone. Once the rash is gone and the itching will get better and resolved. Follow-up with Dr. Young as needed. We can start you on steroids if needed but currently I think the Benadryl and a new dressing will work. I do not want to affect the healing of the incision. Disposition Disposition: Home, Self Care
[2023-07-21 10:59] VITALS: BP 166/98; PULSE 86; RESP 18; TEMP 36.4; O2SAT 95
== END 2023-07-21 11:03 | disposition home or self-care (01) ==
PROVIDERS: Emergency Provider Emergency Medicine; PCP Family Medicine; Visit Provider Emergency Medicine
DX: L24.89 Irritant contact dermatitis due to other agents (principal); Z98.890 Other specified postprocedural states; K21.9 Gastro-esophageal reflux disease without esophagitis; Z79.899 Other long term (current) drug therapy
CPT/HCPCS: 99283

== ENCOUNTER 2024-01-26 14:44 | Emergency (ER) | payer MEDICARE, OTHER, SELFPAY ==
[2024-01-26 14:45] VITALS: BP 158/72; PULSE 64; RESP 14; TEMP 36.7; O2SAT 97; BMI 26.6
--- NOTE | 2024-01-26 14:49 | CT_ITS ---
STUDY: CT BRAIN WITHOUT CONTRAST REASON FOR EXAM: Female, 83 years old. Headaches. Dizziness. RADIATION DOSAGE (If Supplied By Facility): CTDIvol = ( 44.99 ) mGy, DLP = ( 745.49 ) mGycm TECHNIQUE: Transaxial CT imaging of the brain was performed without administration of intravenous contrast material. Individualized dose optimization techniques were used for this CT. COMPARISON: Comparison is made with prior study dated November 25, 2022. FINDINGS: Normal soft tissue structures. Normal calvarium. There is mild cerebral atrophy with widening of the extra-axial spaces and ventricular dilatation. There are areas of decreased attenuation within the white matter tracts of the supratentorial brain, consistent with microvascular disease changes. Normal basal ganglia and thalami. Normal brainstem. Normal cerebellum. There is no intracranial hemorrhage. There are no findings of an acute ischemic infarction. Normal visualized paranasal sinuses. CT/Brain/Head without Contrast IMPRESSION: Chronic involutional changes of the brain. Electronically Signed: Tu Cao MD at 15:36 EDT ,
--- NOTE | 2024-01-26 14:53 | ED.RN ---
SPOKE WITH DR. CHUNG REGARDING PT, CT ORDERED IN TRIAGE. PT HAS ALLERGY TO CONTRAST, WILL EVALUATE ALLERGY ONCE IN A ROOM. ATTEMPTING TO D/C PTS TO GET THIS PT ROOMED.
--- NOTE | 2024-01-26 15:06 | EDS_ITS ---
HPI History of Present Illness Chief Complaint: Headache PFSH PFSH Medical History Alcohol use Arthritis Cardiology follow-up encounter DVT (deep venous thrombosis) Gastric reflux History of echocardiogram History of stress test Long QT interval Non-smoker Wears glasses Home Medications ?Medication ?Instructions ?Recorded ?Last Taken ?Type omeprazole 20 mg capsule,delayed 20 mg PO DAILY 11/25/22 07/13/23 History release azelastine 0.05 % eye drops 1 drp ophthalmic (eye) PRN 07/07/23 Unknown History calcium 250 mg tablet 750 mg PO DAILY 07/07/23 07/10/23 History cholecalciferol (vitamin D3) 25 50 mcg PO DAILY 07/07/23 07/10/23 History mcg (1,000 unit) capsule (Vitamin D3) multivitamin 2 tab PO DAILY 07/07/23 07/10/23 History hydrocodone-acetaminophen 5-325mg 1 tab PO Q6H 7 days #28 tabs 07/13/23 Unknown Rx 5mg-325mg metoclopramide HCl 5 mg tablet 5 mg PO Q8H PRN PRN headache 3 01/26/24 Unknown Rx (Reglan) days #9 tabs Allergy/AdvReac Type Severity Reaction Status Date / Time Iodinated Contrast Media Allergy Hives Verified 01/26/24 14:44 Surgical History History of bunionectomy of both great toes History of carpal tunnel release of both wrists History of hip surgery History of tonsillectomy Social History Smoking Status: Never smoker substance use type: does not use EXAM Physical Exam Const Vital Signs: 01/26/24 14:45 01/26/24 15:44 01/26/24 16:32 Temperature 98.1 F 98 F Temperature Source Temporal Pulse Rate 64 58 L 58 L Respiratory Rate 14 17 18 Blood Pressure 158/72 H 164/61 H 157/75 H Blood Pressure Mean 100 95 102 Pulse Ox 97 97 97 Oxygen Delivery Method Room Air Room Air MDM MDM MDM Narrative Medical decision making narrative: HISTORY OF PRESENT ILLNESS: 83-year-old female presents with concern for headache. Notes constant headache that occurred approximately 2 hours prior to arrival. Is located over the left forehead, left yazidism. Does not radiate. Is not associated with loss of movement, sensation, vomiting, seizures, loss of consciousness. Patient notes sudden onset but denies maximal intensity within 1 minute, vomiting, neck pain, stiffness, changes in vision, fever, history malignancy, syncope, or seizures associated with headache. REVIEW OF SYSTEMS: Pertinent positives: HOWARD, memory loss Pertinent negatives: Chest pain, shortness of breath, Maxifed, fever PHYSICAL EXAM: Nursing triage notes reviewed, Vital signs reviewed Constitutional: please see mdm HENT: MMM, no temporal artery tenderness Eyes: Pupils equal round and reactive to light, Extraocular muscles intact Neck: No stridor, no JVD, full neck ROM, no carotid bruit noted Lungs: Clear to auscultation, No wheezing or rales. No increased work of breathing, no conversational dyspnea, no accessory muscle use, no nasal flaring. No respiratory distress noted Heart: Regular rate and rhythm, No murmurs, No rubs and No gallops, 2+ distal pulses (radial, femoral, posterior tibial) in all extremities Abdomen: Soft, there is no tenderness, rigidity, rebound or guarding, no obvious peritoneal signs, no palpable pulsatile abdominal masses, no auscultated abdominal bruit : No CVAT Extremities: No edema Neuro: Alert and oriented x3, neuro exam at baseline, cranial nerves II through XII are intact. No pain with extraocular muscle movement. There is negative test of skew. 5 of 5 strength in upper and lower extremities in flexion extens ion. Intact sensation to light touch in upper and lower extremity dermatomes. No truncal or extremity ataxia. No dysdiadochokinesia. Normal gait. 2+ reflexes in upper and lower extremities. No meningeal signs. Negative Babinski. NIH of 0. Skin: No rash or lesions noted MEDICAL DECISION MAKING: Chief Complaint: HOWARD External records reviewed: reviewed prior images. showed chronic involutional changes of the brai Factors affecting care: DVT, GERD, alcohol abuse Social determinants of health: none History obtained from others: Consults: none [facility] Narrative: The patient was initially hemodynamically stable, afebrile. Exam without focal deficits, no meningeal signs. The patient is nontoxic-appearing. She not have any appreciable temporal artery tenderness. I considered the following differential diagnosis: ICH, meningitis, carotid artery dissection, migraine, dementia, temporal arteritis While considered carotid artery dissection the patient's history and physical exam was not consistent I obtained labs to assess signs of systemic inflammation. CT scan of the head to assess for signs of ICH or subarachnoid hemorrhage ALL IMAGES (IF OBTAINED) HAVE BEEN PERSONALLY REVIEWED AND INTERPRETED BY MYSELF. CT scan of the head was negative for signs of ICH this is very sensitive in the first 6 hours of symptoms and essentially rules out ICH or subarachnoid he morrhage. ESR/CRP negative making temporal arteritis less likely CBC without leukocytosis, severe anemia, no thrombocytopenia. CMP without evidence of acute kidney injury, significant electrolyte abno rmality, anion gap, no evidence hepatobiliary pathology. On reassessment patient looks great and is in no significant objective discomfort currently. The patient's headache is non-specific. Exam is u nremarkable. The patient is in no distress and the patient?s neurological exam is non-focal, neck is supple and without meningismus. Inflammatory markers are negative no signs of temporal iritis. CT head was negative, the headache is not consistent with meningitis or infection, nor is it consistent with intracranial bleed (SAH etc.), carotid dissection, nor mass by history and examination. Medication and outpatient follow-up was instructed. The patient was instructed to return as needed or if symptoms changed or worsened, fever developed or inability to tolerate fluids. The patient agreed with plan. The patient and/or family, caregivers express understanding. The patient and/or family, caregivers agrees with the plan. Shared decision making: I will have a discussion with the patient and or visitors regarding risk/benefits of further testing or admission. They will be made aware of of the risk/benefits inherent in this decision they will be given the opportunity to voice understanding. Total critical care time today provided was at least 0 minutes. This excludes separately billable procedures. Critical care time (if documented) is secondary to the patient having high probability of clinically significant/life threatening deterioration in the patient's condition which required my urgent intervention. Impression: 1. Acute headache 2. History of lumbar stenosis Dispo: Discharge home This note was generated with [employer] dictation software. It may contain incorrect words, spelling, and punctuation that were not noted in review of the chart prior to signing. Lab Data Labs: Laboratory Results - last 24 hr 01/26/24 15:20 WBC 7.0 RBC 4.46 Hgb 13.0 Hct 39.7 MCV 89.0 MCH 29.1 MCHC 32.7 RDW Std Deviation 41.9 RDW Coeff of Meg 12.9 Plt Count 244 MPV 10.6 Immature Gran % (Auto) 0.300 Neut % (Auto) 55.3 Lymph % (Auto) 31.1 [place] % (Auto) 11.3 H Eos % (Auto) 1.1 Baso % (Auto) 0.9 Absolute Neuts (auto) 3.9 Absolute Lymphs (auto) 2.17 Nucleated RBC % 0 ESR 11 Sodium 136 Potassium 4.0 Chloride 105 Carbon Dioxide 25.0 Anion Gap 5 BUN 17 Creatinine 0.90 Estim Creat Clear Calc 41.27 Est GFR (MDRD) Af Amer 77 Est GFR (MDRD) Non-Af 63 BUN/Creatinine Ratio 18.8 Glucose 126 H Calcium 9.2 Total Bilirubin 0.50 AST 23 ALT 25 Alkaline Phosphatase 87 C-React Prot Ext Range < 2.90 Total Protein 7.1 Albumin 3.5 Globulin 3.6 Albumin/Globulin Ratio 1.0 Radiography Diagnostic Testing: Clinical Impression(s) from Imaging Studies Brain CT 01/26/24 14:49 IMPRESSION: Chronic involutional changes of the brain. Electronically Signed: Tu Cao MD at 15:36 EDT , Discharge Plan Triage Chief Complaint: Headache ED Provider: Sung Minaya Dx/Rx/DC Orders Instructions: ED Headache Unspecified Prescriptions: New metoclopramide HCl [Reglan] 5 mg tablet 5 mg PO Q8H PRN PRN (Reason: headache) 3 Days Qty: 9 0RF No Action omeprazole 20 mg capsule,delayed release(DR/EC) 20 mg PO DAILY Patient Comments: TAKE 1 CAPSULE BY MOUTH EVERY DAY 30-45 minutes before a meal/snack azelastine 0.05 % drops 1 drp ophthalmic (eye) PRN Patient Comments: instill 1 (ONE) drop into both eyes TWICE DAILY multivitamin Tablet 2 tab PO DAILY calcium 250 mg tablet 750 mg PO DAILY cholecalciferol (vitamin D3) [Vitamin D3] 25 mcg (1,000 unit) capsule 50 mcg PO DAILY hydrocodone-acetaminophen 5-325 mg tablet 1 tab PO Q6H 7 Days Qty: 28 0RF Primary Care Provider: Re Harley Referrals: Re Harley MD [Primary Care Provider] - Activity Restrictions/Additional Instructions: Thank you for trusting us with your care today! Please take Tylenol (2 pills, 650 mg), ibuprofen (2 pills, 400 mg) every 6 hours as needed for pain and fever control. Please take Reglan as needed for headache and nausea control. Please return to the emergency department if your symptoms change or worsen. Please follow with your primary care physician for further outpatient evaluation and management. Print Language: Luxembourgish Disposition Disposition: Home, Self Care Discharge Date/Time: 01/26/24 16:33
[2024-01-26 15:44] VITALS: BP 164/61; PULSE 58; RESP 17; O2SAT 97
[2024-01-26 15:59] LABS: Absolute Lymphocyte Count 2.17 X10^3/uL (0.83-4.51); Absolute Neutrophil Count 3.9 X10^3/uL (2.0-7.7); Basophil# 0.06 X10^3/uL; Basophil% 0.9 % (0-1); Eosinophil# 0.08 X10^3/uL; Eosinophils% 1.1 % (0-5); Hematocrit 39.7 % (37-47); Lymphocyte # 2.17 X10^3/ul (0.83-4.51); Lymphocyte % 31.1 % (19-41); Mean Corp Hgb Conc 32.7 g/dL (32-36); Mean Corpuscular Hgb 29.1 pg (27.0-32.0); Mean Platelet Vol. 10.6 fl (6.2-12.0); Monocyte# 0.79 X10^3/uL; Monocyte% 11.3 % (0-10); NRBC Flagged by Analyzer 0 % (0-5); Neutrophil # 3.86 X10^3/uL (2.7-7.7); Neutrophil % 55.3 % (47-70); Platelet Count 244 K/mm3 (150-450); RBC Distribution Width CV 12.9 % (11.6-14.6); RBC Distribution Width SD 41.9 fl (35.1-43.9); Red Blood Count 4.46 M/mm3 (4.2-5.4)
[2024-01-26] MEDS: Metoclopramide 10 MG/2 ML Vial 5 MG IV (16:03)
[2024-01-26] MEDS: dexAMETHasone 4 MG/ML Vial IV (16:04)
[2024-01-26] MEDS: Ketorolac 15 MG/ML Vial IV (16:04)
[2024-01-26 16:06] LABS: Erythrocyte Sedimentation Rate 11 mm/hr (0-30)
[2024-01-26 16:17] LABS: AST(SGOT) 23 U/L (15-37); Alanine Aminotransfer ALT/SGPT 25 U/L (13-56); Albumin, Serum 3.5 g/dL (3.2-5.0); Alkaline Phosphatase 87 U/L (45-117); Anion Gap 5 (5-15); BUN 17 mg/dL (7-18); BUN/Creat Ratio 18.8 RATIO (10-20); CRP < 2.90 mg/L (0.0-3.0); Calcium,Total 9.2 mg/dL (8.5-10.1); Chloride 105 mmol/L (98-107); EST Glomerular Filtration Rate 63 mL/min (>60); Est Glom Filt Rate - Afr Amer 77 mL/min (>60); Estimated Creatinine Clearance 41.27 ml/min; Globulin 3.6 g/dL (2.2-4.2); Glucose 126 mg/dL (74-106); Protein, Total 7.1 g/dL (6.4-8.2); Sodium Level 136 mmol/L (136-145)
[2024-01-26 16:32] VITALS: BP 157/75; PULSE 58; RESP 18; TEMP 36.6; O2SAT 97
== END 2024-01-26 16:33 | disposition home or self-care (01) ==
PROVIDERS: Emergency Provider Emergency Medicine; PCP Family Medicine; Visit Provider Emergency Medicine
DX: R51.9 Headache, unspecified (principal); K21.9 Gastro-esophageal reflux disease without esophagitis; Z79.899 Other long term (current) drug therapy; Z87.39 Personal history of other diseases of the musculoskeletal system and connective tissue
CPT/HCPCS: 70450; 80053; 85025; 85652; 86140; 96374; 96375; 99283; A4216

== ENCOUNTER → 2024-02-02 | Outpatient (CLI) | payer MEDICARE, OTHER, SELFPAY ==
--- NOTE | 2024-02-02 09:16 | BI_ITS ---
MAMMOGRAPHY - BILATERAL DIAGNOSTIC REASON FOR EXAM: Female, 83 years old. Pain in the upper outer quadrant of the right breast. PERTINENT HISTORY: Sister with breast cancer. Remote right breast biopsy. TECHNIQUE: Digital bilateral breast shaniqua (3D mammographic acquisition) in the CC and MLO projections. 2-D mediolateral oblique (MLO) and craniocaudad (CC) views of both breasts were obtained. CAD: Full Field Digital Mammography with Computer Added Detection was performed. COMPARISON: Comparison is made with prior study dated March 20, 2023. FINDINGS: Breast Composition: There are scattered areas of fibroglandular density. There are no dominant masses or suspicious calcifications. No other significant abnormalities are identified. There has been no significant change since the prior study. BI/DIAG MAMM W/CAD, BILAT IMPRESSION: Stable bilateral diagnostic mammogram. One year follow-up recommended. (A) ASSESSMENT CATEGORY: BIRADS Category 1: Negative. A letter regarding these results will be sent to the patient by the facility within 30 days. Approximately 10% of breast cancers are not detected by mammography. A normal mammogram should not delay biopsy of a clinically suspicious abnormality. Electronically Signed: Tu Cao MD at 10:25 EDT ,
--- NOTE | 2024-02-02 09:16 | US_ITS ---
STUDY: ULTRASOUND BREAST - RIGHT REASON FOR EXAM: Female, 83 years old. Right breast pain. TECHNIQUE: Axial and longitudinal images of the RIGHT breast were performed with a high resolution ultrasound transducer. # OF IMAGES: 24 COMPARISON: Comparison is made with prior mammogram done earlier today. FINDINGS: RIGHT Breast: The lateral half of the right breast was examined with ultrasound. Scattered fibroglandular tissue. No sonographic abnormality is seen US/Breast Limited Unilateral IMPRESSION: No sonographic abnormality is seen. ASSESSMENT CATEGORY: BIRADS Category 1: Negative. A letter regarding these results will be sent to the patient by the facility within 30 days. Electronically Signed: Tu Cao MD at 10:52 EDT ,
== END | disposition home or self-care (01) ==
PROVIDERS: PCP Family Medicine; Referring Provider Nurse Practitioner Family; Visit Provider Nurse Practitioner Family
DX: N64.4 Mastodynia (principal); Z12.31 Encounter for screening mammogram for malignant neoplasm of breast
CPT/HCPCS: 76642; 77062; 77066; G0279

== ENCOUNTER → 2025-01-09 | Outpatient (CLI) | payer MEDICARE, OTHER, SELFPAY ==
--- NOTE | 2025-01-09 12:19 | BI_ITS ---
EXAM: SCRN MAMM (CAD)W/MISHA BILAT DATE: 01/09/2025 CLINICAL HISTORY: F, Age 84 y/o , SCREENING Sister with breast cancer. Remote right breast biopsy. TECHNIQUE: Procedure Code: [id number] Modality: MG Procedure: SCRN MAMM (CAD)W/MISHA BILAT COMPARISON: Prior exam(s) dated February 02, 2024.. FINDINGS: TISSUE DENSITY: There are scattered areas of fibroglandular density. Bilateral Breast Mammographic Findings: No significant masses, calcifications or other abnormalities are identified. Stable bilateral secretory calcification. No suspicious masses, areas of developing architectural distortion, or suspicious calcifications. There has been no significant interval change. BI/SCRN MAMM (CAD)W/MISHA BILAT IMPRESSION: Stable bilateral screening mammogram. OVERALL FINAL ASSESSMENT BI-RADS 2: BENIGN RECOMMENDATION: Routine annual follow-up in 1 Year A letter with findings and recommendations will be mailed to the patient. Reading Location: [facility]
== END | disposition home or self-care (01) ==
LOC: OPBI 12:18
PROVIDERS: PCP Family Medicine; Referring Provider Nurse Practitioner Family; Visit Provider Nurse Practitioner Family
DX: Z12.31 Encounter for screening mammogram for malignant neoplasm of breast (principal); Z80.3 Family history of malignant neoplasm of breast
CPT/HCPCS: 77063; 77067

== ENCOUNTER → 2025-01-21 | Outpatient (CLI) | payer MEDICARE, OTHER, SELFPAY ==
[2025-01-21 09:34] LABS: Hematocrit 41.3 % (37-47); Hemoglobin 14.2 g/dL (12.0-15.0); Immature Granulocytes Count 0.020 X10^3/uL (0.0-0.0); Mean Corp Hgb Conc 34.4 g/dL (32-36); Mean Corpuscular Volume 87.5 fL (81-99); Mean Platelet Vol. 9.4 fl (6.2-12.0); NRBC Flagged by Analyzer 0 % (0-5); Platelet Count 278 K/mm3 (150-450); RBC Distribution Width CV 12.5 % (11.6-14.6); RBC Distribution Width SD 39.9 fl (35.1-43.9); Red Blood Count 4.72 M/mm3 (4.2-5.4); White Blood Count 5.7 K/mm3 (4.4-11.0)
[2025-01-21 10:16] LABS: AST(SGOT) 24 U/L (<=31); Alanine Aminotransfer ALT/SGPT 22 U/L (<=34); Albumin, Serum 4.2 g/dL (3.4-4.8); Alkaline Phosphatase 82 U/L (35-104); Anion Gap 11 (5-15); BUN 19 mg/dL (4-19); BUN/Creat Ratio 19.2 RATIO (10-20); Calcium,Total 9.4 mg/dL (7.6-11.0); Carbon Dioxide 24.9 mmol/L (21.0-32.0); Chloride 102 mmol/L (98-108); Cholesterol 265 mg/dL (<=200); Globulin 2.7 g/dL (2.2-4.2); Glucose 92 mg/dL (70-99); Low Density Lipoprotein Calc. 139 mg/dL; Potassium 4.3 mmol/L (3.3-5.1); Triglycerides 87 mg/dL; Very Low Density Lipoprotein 17 mg/dL (5-40); cholesterol:hdl ratio screen 2.43
[2025-01-21 10:34] LABS: Iron 163 ug/dL (50-170)
[2025-01-21 10:35] LABS: Ferritin 388 ng/mL (22-378); Vitamin D,25 Hydroxy 84.7 ng/mL (30-100)
== END | disposition home or self-care (01) ==
LOC: LAB 09:17
PROVIDERS: PCP Nurse Practitioner Family; Referring Provider Nurse Practitioner Family; Visit Provider Nurse Practitioner Family
DX: E55.9 Vitamin D deficiency, unspecified (principal); D72.9 Disorder of white blood cells, unspecified; E78.5 Hyperlipidemia, unspecified; E61.1 Iron deficiency
CPT/HCPCS: 36415; 80053; 80061; 82306; 82728; 83540; 85025

== ENCOUNTER → 2025-02-19 | Outpatient (CLI) | payer MEDICARE, OTHER, SELFPAY ==
--- NOTE | 2025-02-19 10:54 | RAD_ITS ---
PROCEDURE: CHEST PA AND LATERAL 02/19/2025 REASON FOR EXAM: RULE OUT PNEUMONIA TECHNIQUE: Procedure Code: RADCXR Modality: DX Procedure: CHEST PA AND LATERAL COMPARISON: None FINDINGS: There is mild interstitial lung disease which appears chronic. There is no lobar consolidation or pleural effusion. There is cardiomegaly. There is calcific vascular disease of the thoracic aorta. There is diffuse degenerative disc disease of the thoracic spine with mild dextroscoliosis. The visualized upper abdominal bowel gas pattern is normal. RAD/Chest PA and Lateral IMPRESSION: Interstitial lung disease which appears chronic. Cardiomegaly. Other findings as noted. Reading Location: [place] [id number]
--- NOTE | 2025-02-19 10:54 | RAD_ITS ---
PROCEDURE: CHEST PA AND LATERAL 02/19/2025 REASON FOR EXAM: RULE OUT PNEUMONIA TECHNIQUE: Procedure Code: RADCXR Modality: DX Procedure: CHEST PA AND LATERAL COMPARISON: None FINDINGS: There is mild interstitial lung disease which appears chronic. There is no lobar consolidation or pleural effusion. There is cardiomegaly. There is calcific vascular disease of the thoracic aorta. There is diffuse degenerative disc disease of the thoracic spine with mild dextroscoliosis. The visualized upper abdominal bowel gas pattern is normal. RAD/Chest PA and Lateral IMPRESSION: Interstitial lung disease which appears chronic. Cardiomegaly. Other findings as noted. Reading Location: [place] [id number]
== END | disposition home or self-care (01) ==
LOC: MTRAD 10:53
PROVIDERS: PCP Nurse Practitioner Family; Referring Provider Nurse Practitioner Family; Visit Provider Nurse Practitioner Family
DX: J84.9 Interstitial pulmonary disease, unspecified (principal); I51.7 Cardiomegaly
CPT/HCPCS: 71046

== ENCOUNTER 2025-02-24 09:31 | Emergency (ER) | payer MEDICARE, OTHER, SELFPAY ==
[2025-02-24 09:32] VITALS: BP 176/80; PULSE 59; RESP 18; TEMP 36.6; O2SAT 97
--- NOTE | 2025-02-24 09:51 | EX.ED.DYSGE1 ---
HPI History of Present Illness Chief Complaint: Cough Narrative Narrative: 84-year-old female presents emergency department for complaint of cough. Patient states that since December she has been having cough that is been dry but nonproductive feeling like she needs to cough something up. Patient states that she is on her second round of steroids of Medrol Dosepak and has been on it for 3 days. Patient states she is also been taking cough suppressant syrup and Symbicort. Denies any known history of COPD or emphysema. Denies any chills, fevers, vomiting, diarrhea, history of PE, chest pain. States that she just had a chest x-ray last week which was negative. States that the reason she came in today was that she had 2-hour long episode of cough and could not get it under control. [facility] Medical History Alcohol use Arthritis Cardiology follow-up encounter DVT (deep venous thrombosis) Gastric reflux History of echocardiogram History of stress test Long QT interval Non-smoker Wears glasses Home Medications ?Medication ?Instructions ?Recorded ?Last Taken ?Type omeprazole 20 mg capsule,delayed 20 mg PO DAILY 11/25/22 07/13/23 History release azelastine 0.05 % eye drops 1 drp ophthalmic (eye) PRN 07/07/23 Unknown History calcium 250 mg tablet 750 mg PO DAILY 07/07/23 07/10/23 History cholecalciferol (vitamin D3) 25 50 mcg PO DAILY 07/07/23 07/10/23 History mcg (1,000 unit) capsule (Vitamin D3) multivitamin 2 tab PO DAILY 07/07/23 07/10/23 History hydrocodone-acetaminophen 5-325mg 1 tab PO Q6H 7 days #28 tabs 07/13/23 Unknown Rx 5mg-325mg metoclopramide HCl 5 mg tablet 5 mg PO Q8H PRN PRN headache 3 01/26/24 Unknown Rx (Reglan) days #9 tabs azithromycin 250 mg tablet See Rx Instructions PO .COMPLEX #6 02/24/25 Unknown Rx tabs benzonatate 200 mg capsule 200 mg PO BID PRN cough #7 caps 02/24/25 Unknown Rx Allergy/AdvReac Type Severity Reaction Status Date / Time Iodinated Contrast Media Allergy Hives Verified 02/24/25 09:34 Surgical History History of bunionectomy of both great toes History of carpal tunnel release of both wrists History of hip surgery History of tonsillectomy Social History Smoking Status: Never smoker substance use type: does not use EXAM Physical Exam Const Vital Signs: 02/24/25 09:32 02/24/25 10:01 02/24/25 10:04 Temperature 98 F 99.1 F Temperature Source Oral Oral Pulse Rate 59 L 53 L Respiratory Rate 18 18 Respiratory Effort Normal Respiratory Depth Normal Respiratory Pattern Normal Blood Pressure 176/80 H 167/93 H Blood Pressure Mean 112 117 Pulse Ox 97 98 Oxygen Delivery Method Room Air Room Air Room Air HEENT Reports moist mucous membranes and other sinus congestion, no tenderness. No rhinorrhea, no oropharynx erythema or exudate other Lymph Lymphatic Narrative: no lymphadenopathy Resp normal respiratory effort and clear to auscultation bilaterally Effort and Inspection: Negative for retractions Auscultation: Negative for wheezes Cardio regular rate, regular rhythm and no murmurs GI Palpation: soft; Negative for tender Extremity General Extremety ED: Negative for edema or tenderness General Extremity: Negative for edema MDM MDM MDM Narrative Medical decision making narrative: 84-year-old female presents emergency department for complaint of cough. Patient states that since December she has been having cough that is been dry but nonproductive feeling like she needs to cough something up. Patient states that she is on her second round of steroids of Medrol Dosepak and has been on it for 3 days. Patient states she is also been taking cough suppressant syrup and Symbicort. Denies any known history of COPD or emphysema. Denies any chills, fevers, vomiting, diarrhea, history of PE, chest pain. States that she just had a chest x-ray last week which was negative. States that the reason she came in today was that she had 2-hour long episode of cough and could not get it under control. On my physical exam patient having dry cough no sputum, throat not erythematous no signs of exudate. No increased work of breathing or signs of respiratory distress. Lungs clear to auscultation bilaterally with no wheezing. Vitals within normal limits. Labs unremarkable for leukocytosis or electrolyte abnormality. Chest x-ray reviewed from 02/19 showing no evidence of pneumonia. CT performed of the chest showing no evidence of infectious process or acute cardiopulmonary process. Likely chronic interstitial disease. Suspect bronchitis versus atypical pneumonia patient already on Medrol Dosepak at home. Will give Z-Braxton since symptoms have been ongoing for a month for treatment of possible atypical pneumonia. Tessalon Perles given. Recommend follow-up with PCP within 1 week for reexamination. History & Record Review Additional record(s) reviewed:: Other (CXR on 02/19/25 showing chronic interstitial lung disease, no infectious process) Lab Data Attestation: I reviewed the patient's lab results. Lab results narrative: No evidence of leukocytosis or large electrolyte abnormality, labs largely unremarkable Labs: Laboratory Results - last 24 hr 02/24/25 10:03 WBC 9.3 RBC 4.31 Hgb 13.0 Hct 38.5 MCV 89.3 MCH 30.2 MCHC 33.8 RDW Std Deviation 42.0 RDW Coeff of Meg 12.6 Plt Count 237 MPV 10.3 Immature Gran % (Auto) 0.400 Neut % (Auto) 70.8 H Lymph % (Auto) 15.1 L Pratt % (Auto) 13.4 H Eos % (Auto) 0.0 Baso % (Auto) 0.3 Absolute Neuts (auto) 6.6 Absolute Lymphs (auto) 1.41 Nucleated RBC % 0 Sodium 138 Potassium 4.3 Chloride 102 Carbon Dioxide 25.4 Anion Gap 10 BUN 18 Creatinine 0.73 Estim Creat Clear Calc 45.29 L Est GFR (MDRD) Non-Af 82 BUN/Creatinine Ratio 24.1 H Glucose 134 H Calcium 9.2 Radiography Diagnostic Testing: Clinical Impression(s) from Imaging Studies Chest CT 02/24/25 10:05 IMPRESSION: Coronary artery calcification (CAC) is is present No acute abnormality is seen. Reading Location: [id number] chest independently interpreted by myself showing no evidence of pneumonia or consolidation. EKG Initial EKG: Attestation: I personally reviewed and interpreted this EKG as follows: Comments: EKG independently interpreted by myself showing sinus bradycardia, ventricular rate 48, VA 156, QTc 443. Normal axis. No signs of ST elevation depression or T wave versions consistent with ischemia Prior EKG tracings: available for review (11/25/2022) Discharge Plan Triage Chief Complaint: Cough ED Provider: Jihan Hassan Dx/Rx/DC Orders Clinical Impression: Cough in adult Prescriptions: New azithromycin 250 mg tablet See Rx Instructions PO .COMPLEX Qty: 6 0RF Rx Instructions: For 250 mg dose pack: take 500 mg today (day 1), then 250 mg for 4 days (days 2-5) benzonatate 200 mg capsule 200 mg PO BID PRN (Reason: cough) Qty: 7 0RF No Action omeprazole 20 mg capsule,delayed release(DR/EC) 20 mg PO DAILY Patient Comments: TAKE 1 CAPSULE BY MOUTH EVERY DAY 30-45 minutes before a meal/snack azelastine 0.05 % drops 1 drp ophthalmic (eye) PRN Patient Comments: instill 1 (ONE) drop into both eyes TWICE DAILY multivitamin Tablet 2 tab PO DAILY calcium 250 mg tablet 750 mg PO DAILY cholecalciferol (vitamin D3) [Vitamin D3] 25 mcg (1,000 unit) capsule 50 mcg PO DAILY hydrocodone-acetaminophen 5-325 mg tablet 1 tab PO Q6H 7 Days Qty: 28 0RF metoclopramide HCl [Reglan] 5 mg tablet 5 mg PO Q8H PRN PRN (Reason: headache) 3 Days Qty: 9 0RF Primary Care Provider: Kathy Contreras Referrals: Kathy Contreras, [facility] [Primary Care Provider, [facility]] Activity Restrictions/Additional Instructions: Please follow-up with your primary care provider within the next week regarding your visit today. You may continue taking the medications prescribed you along with the steroid. You are also given medication to help with cough which you can take as needed. You are also prescribed antibiotic to cover for any atypical pneumonia. Your imaging here was unremarkable for any large infectious process. Return if you develop any worsening symptoms, shortness of breath, fevers not relieved by Tylenol. Print Language: [place] Disposition Disposition: Home, Self Care
[2025-02-24 10:02] VITALS: BMI 26.2
[2025-02-24 10:04] VITALS: BP 167/93; PULSE 53; RESP 18; TEMP 37.3; O2SAT 98
--- NOTE | 2025-02-24 10:05 | CT_ITS ---
PROCEDURE: CHEST WITHOUT CONTRAST 02/24/2025 REASON FOR EXAM: COUGH, NEGATIVE CXR TECHNIQUE: Chest CT without contrast. Coronal and Sagittal reconstruction series were provided. One or more dose reduction techniques were used (e.g., Automated exposure control, adjustment of the mA and/or kV according to patient size, use of iterative reconstruction technique RADIATION DOSE SUMMARY: CTDlvol: 6.65 mGy DLP: 230.94 mGycm COMPARISON: Prior chest radiograph dated February 19, 2025. FINDINGS: Hardware: None Lymph nodes: Small benign-appearing bilateral axillary lymph nodes. Small benign-appearing mediastinal lymph nodes. Heart and Vasculature: Coronary artery calcification. The heart is nonenlarged. Coronary Artery Calcifications: Present Lungs and Airways: Minimal linear scarring in the right middle lobe. No focal consolidation or mass lesion is seen. Pleura: No pleural effusion. Upper Abdomen: Unremarkable. Bones: Degenerative changes of the thoracic spine. CT/Chest without Contrast IMPRESSION: Coronary artery calcification (CAC) is is present No acute abnormality is seen. Reading Location: [id number]
[2025-02-24 10:12] LABS: Hematocrit 38.5 % (37-47); Hemoglobin 13.0 g/dL (12.0-15.0); Immature Granulocytes Count 0.040 X10^3/uL (0.0-0.0); Mean Corp Hgb Conc 33.8 g/dL (32-36); Mean Corpuscular Volume 89.3 fL (81-99); Mean Platelet Vol. 10.3 fl (6.2-12.0); NRBC Flagged by Analyzer 0 % (0-5); Platelet Count 237 K/mm3 (150-450); RBC Distribution Width CV 12.6 % (11.6-14.6); RBC Distribution Width SD 42.0 fl (35.1-43.9); Red Blood Count 4.31 M/mm3 (4.2-5.4); White Blood Count 9.3 K/mm3 (4.4-11.0)
[2025-02-24 10:37] LABS: Anion Gap 10 (5-15); BUN 18 mg/dL (4-19); BUN/Creat Ratio 24.1 RATIO (10-20); Calcium,Total 9.2 mg/dL (7.6-11.0); Carbon Dioxide 25.4 mmol/L (21.0-32.0); Chloride 102 mmol/L (98-108); Estimated Creatinine Clearance 45.29 ml/min (50-250); Glucose 134 mg/dL (70-99); Potassium 4.3 mmol/L (3.3-5.1)
[2025-02-24 11:25] VITALS: BP 163/83; PULSE 60; RESP 16; TEMP 36.5; O2SAT 97
== END 2025-02-24 11:27 | disposition home or self-care (01) ==
PROVIDERS: Emergency Provider Student in an Organized Health Care Education/Training Program; PCP Nurse Practitioner Family; Visit Provider Student in an Organized Health Care Education/Training Program
DX: R05.9 Cough, unspecified (principal); K21.9 Gastro-esophageal reflux disease without esophagitis; Z79.899 Other long term (current) drug therapy
CPT/HCPCS: 71250; 80048; 85025; 93005; 99282; A4216